=== PATIENT | female | born 1960 | race Caucasian/White ===

== ENCOUNTER 2017-08-15 18:19 | Outpatient (REF) | payer BC, SELFPAY ==
[2017-08-15 18:33] VITALS: BP 167/99; PULSE 117; RESP 16; TEMP 36.6; O2SAT 95
--- NOTE | 2017-08-15 18:57 | DI.REPORT_ITS ---
SYMPTOM/DIAGNOSIS: POSTERIOR MEDIAL PAIN LEFT KNEE: Three views. No priors. No acute fracture or dislocation is seen. There is a moderate joint effusion. There are enthesophytes seen at the superior and inferior patella. Mild degenerative changes are seen at the patellofemoral joint and the medial femoral tibial joint. The bones appear intact and normally mineralized. No radiopaque foreign bodies are seen in the soft tissues. There is mild soft tissue swelling anteriorly. IMPRESSION: 1. Mild degenerative changes of the left knee. 2. Moderate joint effusion.
--- NOTE | 2017-08-15 18:58 | ED.GENADUL ---
Disposition Clinical Impression: Knee strain Disposition: HOME Condition: Good Instructions: Swollen Knee Joint (ED) Additional Instructions: Nonweightbearing with crutches/walker until seen by orthopedics in follow-up. Ice, elevate above the level of the heart, use compression bandage to reduce pain and swelling. I have ordered an outpatient ultrasound of your leg for tomorrow. Please call [phone] to schedule an appointment. Please call the orthopedic office following the results of your ultrasound to schedule an appointment for follow-up. The office #[phone] Return to the develop with a fever, redness, increasing pain or any other concerns. May use Tylenol as you have been every 4-6 hours for pain with the oxycodone, as instructed, as needed for severe pain every 4-6 hours if needed. Your x-ray showed fluid in the joint and osteoarthritis but no evidence of bone fracture. Medical Decision Making - Radiology Data Radiology results: report reviewed, image reviewed - Medical Decision Making 56-year-old female with left knee pain for 2 weeks and abruptly worsened today with body movement. She is tender both posteriorly and medially. Exam does not reveal laxity of the joint. There is no erythema and she does not have a fever. Motor is intact as is sensation. Differential diagnosis includes medial meniscus bucket-handle tear, ligamentous strain, osseous injury, Tovar's cyst. Referred for x-ray which does not appear to reveal any bony injury. There does appear to be joint effusion. I will order an outpatient ultrasound for tomorrow to exclude DVT versus Tovar's cyst. More likely this is soft tissue injury. We will keep her nonweightbearing and ask that she follow-up with orthopedics for recheck for soft tissue knee injury. History of Present Illness - General Chief complaint: Orthopedic Stated complaint: L KNEE PAIN Time Seen by Provider: 08/15/17 18:22 Source: patient, family, RN notes reviewed Mode of arrival: wheelchair Limitations: no limitations - History of Present Illness Initial comments: Knee pain: 56-year-old female presents with acute exacerbation of knee pain she has had for 2 weeks. She states that she got up out of a recliner 2 weeks ago and when she is began to weight-bear felt immediate pain in the posterior aspect of her left knee. It is been dull, achy, mild to moderate. It is nonradiating. Symptoms worsened with weightbearing. She states that the begun to improve and today after rising out of a chair and walking while weightbearing she felt 3 quick crunching sounds in the immediate onset of worsening pain in the posterior and medial aspect of the left knee. It too has been nonradiating. It is worse with weightbearing and she has been unable to walk without difficulty. No fall, twisting injury, no numbness or tingling. Denies back pain. - Related Data Calcium Carb/Vit D3/Minerals [Calcium +D & Minerals Chew Tab] 1 tab PO DAILY 06/01/13 Hydrochlorothiazide [Hydrodiuril] 25 mg PO QAM #90 tab-cap 10/09/16 Pravastatin Sodium 20 mg PO DAILY #90 tab-cap 02/01/17 Acetaminophen [Tylenol] 650 mg PO PRN PRN 08/15/17 Allergies Allergy/AdvReac Type Severity Reaction Status Date / Time ibuprofen Allergy Intermediate Swelling Unverified 08/15/17 18:40 doxycycline AdvReac SORE Unverified 08/15/17 18:40 MOUTH/FUZZY TONGUE Review of Systems Other: 6 systems reviewed, otherwise negative Past Medical History - Past Medical History Hypertension hyperlipidemia General Exam - General Limitations: no limitations General appearance: alert, in no apparent distress - Head Head exam: Present: atraumatic, normocephalic - Eye Eye exam: Present: PERRL, EOMI - Respiratory Respiratory exam: Present: normal lung sounds bilaterally. Absent: respiratory distress - Cardiovascular Cardiovascular Exam: Present: regular rate, normal rhythm - GI/Abdominal GI/Abdominal exam: Present: soft. Absent: distended - Extremities Exam Extremities exam: Present: tenderness, normal capillary refill, other (Left knee with posterior and medial joint line tenderness. Do not appreciate palpable cords. There is no calf asymmetry. 2+ DP bilaterally. Sensation is intact throughout. Motor is limited by pain the patient is able to resist in both flexion and extension and motor would be graded at 5 out of 5 bilaterally.) - Back Exam Back exam: Absent: tenderness - Neurological Exam Neurological exam: Present: alert, oriented X3 - Psychiatric Psychiatric exam: Present: normal affect, normal mood - Skin Skin exam: Present: warm, dry, intact. Absent: rash Course Vital Signs - 24 hr 08/15/17 18:33 Temperature 36.6 C Pulse 117 H Respiratory 16 Rate Blood Pressure 167/99 Pulse Oximetry 95
[2017-08-15] MEDS: oxyCODONE 5 MG TAB PO (19:14)
--- NOTE | 2017-08-15 20:01 | DI.VRAD_ITS ---
EXAM: XR Left Knee, 3 views CLINICAL HISTORY: 56 years old, female; Pain; Knee; Left; Patient HX: Posterior/medial pain TECHNIQUE: Three views of the left knee. COMPARISON: No relevant prior studies available. FINDINGS: Bones/joints: Moderate size knee joint effusion. Mild degenerative arthrosis of the patellofemoral joint. Minimal degenerative arthrosis of the medial tibiofemoral joint. No acute fracture. No dislocation. Soft tissues: Swelling of the prepatellar and pretibial soft tissues. IMPRESSION: 1. Osteoarthritis. 2. Knee joint effusion. Dictated and Authenticated by: Pato Mendoza MD. Ordering:TOMMIE FRANCO MD
== END 2018-01-03 15:18 ==
LOC: LBN 01-03 14:58
PROVIDERS: Emergency Provider Emergency Medicine; PCP Family Medicine; Visit Provider Internal Medicine
DX: S83.92XA Sprain of unspecified site of left knee, initial encounter (principal); M25.452 Effusion, left hip; X50.0XXA Overexertion from strenuous movement or load, initial encounter; I10 Essential (primary) hypertension
CPT/HCPCS: 73562; 87077; 99283; 87086

== ENCOUNTER 2018-01-03 12:30 | Outpatient (REF) | payer BC, SELFPAY | END 2018-01-03 12:50 | LOC: LBN 12:30 | PROVIDERS: PCP Family Medicine; Visit Provider Internal Medicine | DX: N39.0 Urinary tract infection, site not specified (principal) | CPT/HCPCS: 87077; 87086; 87186 ==

== ENCOUNTER 2018-03-24 02:05 | Outpatient (CLI) | payer BC, SELFPAY ==
[2018-03-24 11:27] LABS: Hemoglobin A1C 6.4 % (4.5-6.2)
[2018-03-24 11:29] LABS: ALT 52 U/L (12-78); AST 43 U/L (15-37); Albumin 3.5 g/dL (3.4-5.0); Alkaline Phosphatase 107 U/L (46-116); Anion Gap 7.2 mmol/L (3-11); BUN 13 mg/dL (7-18); Bilirubin, Total 0.6 mg/dL (0.2-1.0); CO2 31.8 mmol/L (21.0-32.0); CREATININE 0.78 mg/dL (0.55-1.02); Calcium 8.9 mg/dL (8.5-10.1); Chloride 101 mmol/L (98-107); Cholesterol 157 mg/dL (50-200); Glucose 111 mg/dL (70-100); HDL Cholesterol 32 mg/dL (40-60); LDL CHOLESTEROL 111 mg/dL (<100); Potassium 3.9 mmol/L (3.5-5.1); Sodium 140 mmol/L (136-145); Total Protein 6.9 g/dL (6.4-8.2); Triglyceride 98 mg/dL (30-150)
== END 2018-03-24 02:25 ==
PROVIDERS: PCP Family Medicine; Visit Provider Family Medicine
DX: R73.9 Hyperglycemia, unspecified (principal); E78.5 Hyperlipidemia, unspecified
CPT/HCPCS: 36415; 80053; 80061; 83721; 83036

== ENCOUNTER 2018-07-13 03:37 | Outpatient (CLI) | payer BC, SELFPAY ==
--- NOTE | 2018-07-13 11:00 | DI.MAMMO_ITS ---
SYMPTOMS/DIAGNOSIS: SCREENING, Z12.31 MAMMOGRAMS: Mammograms were interpreted according to the usual protocol including computer analysis with CAD system, tomosynthesis and C view imaging. The breast tissue is primarily of fatty radiodensity. There is no mass. There are no suspicious calcifications and there has been no significant interval change when compared with prior images. SUMMARY: No evidence of malignancy, category 1. Yearly screening mammography is recommended. Breast density category A. MQSA ASSESSMENT OF FINDINGS: Negative. Category 1. Patient will receive a letter notifying them of these results. BI-RAD category A. The breasts are almost entirely fatty.
== END 2018-07-13 03:57 ==
PROVIDERS: PCP Family Medicine; Visit Provider Obstetrics & Gynecology Gynecology
DX: Z12.31 Encounter for screening mammogram for malignant neoplasm of breast (principal)
CPT/HCPCS: 77063; 77067

== ENCOUNTER 2018-09-14 01:40 | Outpatient (CLI) | payer BC, SELFPAY ==
[2018-09-14 11:17] LABS: ALT 39 U/L (12-78); AST 33 U/L (15-37); Albumin 3.4 g/dL (3.4-5.0); Alkaline Phosphatase 108 U/L (46-116); Anion Gap 9.4 mmol/L (3-11); BUN 12 mg/dL (7-18); Bilirubin, Total 0.7 mg/dL (0.2-1.0); CO2 29.6 mmol/L (21.0-32.0); CREATININE 0.74 mg/dL (0.55-1.02); Calcium 8.7 mg/dL (8.5-10.1); Chloride 102 mmol/L (98-107); Glucose 110 mg/dL (70-100); Potassium 3.5 mmol/L (3.5-5.1); Sodium 141 mmol/L (136-145); Total Protein 6.7 g/dL (6.4-8.2)
[2018-09-14 11:21] LABS: Hemoglobin A1C 6.5 % (4.5-6.2)
== END 2018-09-14 02:00 ==
PROVIDERS: PCP Family Medicine; Visit Provider Family Medicine
DX: R73.9 Hyperglycemia, unspecified (principal); I10 Essential (primary) hypertension
CPT/HCPCS: 36415; 80053; 83036

== ENCOUNTER 2018-11-25 10:32 | Outpatient (REF) | payer BC, SELFPAY | END 2018-11-25 10:52 | LOC: LBN 10:32 | PROVIDERS: PCP Family Medicine; Visit Provider Nurse Practitioner | DX: N39.0 Urinary tract infection, site not specified (principal) | CPT/HCPCS: 87077; 87086; 87186 ==

== ENCOUNTER 2019-01-30 10:39 | Outpatient (REF) | payer BC, SELFPAY ==
[2019-01-30 11:16] LABS: Bilirubin Negative (Negative); Blood Moderate (Negative); Clarity Cloudy (Clear); Glucose Negative (Negative); Ketones Negative (Negative); Leukocyte Esterase Moderate (Negative); Nitrite Positive (Negative); Urobilinogen 0.2 EU/dL (Up TO 0.2)
[2019-01-30 11:40] LABS: WBC >50 HPF (0-5)
[2019-01-30 11:42] LABS: C & S Indicated? C&S Done As Ordered
== END 2019-01-30 10:59 ==
LOC: LBN 10:39
PROVIDERS: PCP Family Medicine; Visit Provider Nurse Practitioner Family
DX: R30.0 Dysuria (principal); N30.90 Cystitis, unspecified without hematuria
CPT/HCPCS: 87077; 81003; 81015; 87086; 87186

== ENCOUNTER 2019-02-23 02:08 | Outpatient (CLI) | payer BC, SELFPAY ==
[2019-02-23 11:37] LABS: ALT 36 U/L (14-59); AST 26 U/L (15-37); Albumin 3.6 g/dL (3.4-5.0); Alkaline Phosphatase 93 U/L (46-116); BUN 16 mg/dL (7-18); Bilirubin, Total 0.5 mg/dL (0.2-1.0); CREATININE 0.75 mg/dL (0.55-1.02); Calcium 8.7 mg/dL (8.5-10.1); Calculated LDL 101 mg/dL; Chloride 104 mmol/L (98-107); Cholesterol 146 mg/dL (50-200); Glucose 103 mg/dL (70-100); HDL Cholesterol 32 mg/dL (40-60); Potassium 4.3 mmol/L (3.5-5.1); Sodium 143 mmol/L (136-145); Total Protein 6.9 g/dL (6.4-8.2); Triglyceride 69 mg/dL (30-150)
[2019-02-23 11:53] LABS: Hemoglobin A1C 6.3 % (4.5-6.2)
== END 2019-02-23 02:28 ==
PROVIDERS: PCP Family Medicine; Visit Provider Family Medicine
DX: E78.5 Hyperlipidemia, unspecified (principal); E11.9 Type 2 diabetes mellitus without complications
CPT/HCPCS: 36415; 80053; 80061; 83036

== ENCOUNTER 2019-05-16 12:14 | Outpatient (REF) | payer BC, SELFPAY | END 2019-05-16 12:34 | LOC: LBN 12:14 | PROVIDERS: PCP Family Medicine; Visit Provider Nurse Practitioner | DX: R30.0 Dysuria (principal) | CPT/HCPCS: 87077; 87086; 87186 ==

== ENCOUNTER 2019-06-09 12:22 | Outpatient (REF) | payer BC, SELFPAY ==
[2019-06-09 14:12] LABS: Bilirubin Negative (Negative); Blood Small (Negative); Clarity Cloudy (Clear); Glucose Negative (Negative); Ketones Negative (Negative); Leukocyte Esterase Large (Negative); Nitrite Positive (Negative); Specific Gravity 1.025 (1.005-1.025); Urobilinogen 0.2 EU/dL (Up TO 0.2)
[2019-06-09 14:29] LABS: Bacteria Many HPF (Negative); C & S Indicated? C&S Done As Ordered; Casts Negative LPF (Negative); Crystals Negative HPF (Negative); Epithelial Cells Moderate HPF (Negative); Mucus Negative (Negative); WBC >50 HPF (0-5)
== END 2019-06-09 12:42 ==
LOC: LBN 12:22
PROVIDERS: Nurse Practitioner Family; PCP Family Medicine; Visit Provider Family Medicine
DX: R30.0 Dysuria (principal)
CPT/HCPCS: 87077; 81003; 81015; 87086; 87186

== ENCOUNTER 2019-06-23 12:54 | Outpatient (REF) | payer BC, SELFPAY ==
[2019-06-23 14:42] LABS: Bilirubin Negative (Negative); Blood Moderate (Negative); Clarity Cloudy (Clear); Glucose Negative (Negative); Ketones Negative (Negative); Leukocyte Esterase Large (Negative); Nitrite Positive (Negative); Urobilinogen 0.2 EU/dL (Up TO 0.2)
[2019-06-23 14:52] LABS: Bacteria Many HPF (Negative); Epithelial Cells Few HPF (Negative); WBC >50 HPF (0-5)
[2019-06-23 14:53] LABS: C & S Indicated? C&S Done As Ordered
== END 2019-06-23 13:14 ==
LOC: LBN 12:54
PROVIDERS: PCP Family Medicine; Visit Provider Nurse Practitioner Family
DX: N39.0 Urinary tract infection, site not specified (principal)
CPT/HCPCS: 87077; 81003; 81015; 87086; 87186

== ENCOUNTER 2019-06-26 00:30 | Outpatient (CLI) | payer BC, SELFPAY ==
--- NOTE | 2019-06-26 15:30 | DI.US_ITS ---
EXAM: US RENAL CLINICAL HISTORY: recurrent UTI N39.0. TECHNIQUE: Tubbs scale, color and spectral Doppler were used. COMPARISON: No exams were available for comparison FINDINGS: Renal size in cm: Right: 12.2 left: 12 Echogenicity: Normal. Hydronephrosis: No. Cyst or mass: No. Nephrolithiasis: No. Other findings: Limited examination due to patient body habitus. Bladder:Normal. Ureteral jets: Right: Visualized and unremarkable. Left: Visualized and unremarkable. Prevoid vol:362 cc Postvoid vol:30 cc IMPRESSION: 1. Exam somewhat limited due to patient body habitus. 2. No gross abnormality. DATA REPOSITORY:
== END 2019-06-26 00:50 ==
PROVIDERS: PCP Family Medicine; Visit Provider Nurse Practitioner Family
DX: N39.0 Urinary tract infection, site not specified (principal)
CPT/HCPCS: 76770

== ENCOUNTER 2019-09-30 11:05 | Outpatient (REF) | payer BC, SELFPAY ==
[2019-09-30 12:02] LABS: Bilirubin Negative (Negative); Blood Trace-lysed (Negative); Clarity Sl Cloudy (Clear); Glucose Negative (Negative); Ketones Negative (Negative); Leukocyte Esterase Small (Negative); Nitrite Negative (Negative); Specific Gravity 1.025 (1.005-1.025); Urobilinogen 0.2 EU/dL (Up TO 0.2)
[2019-09-30 12:19] LABS: Bacteria Many HPF (Negative); WBC >50 HPF (0-5)
[2019-09-30 12:20] LABS: C & S Indicated? C&S Done As Ordered
== END 2019-09-30 11:25 ==
LOC: LBN 11:05
PROVIDERS: PCP Family Medicine; Visit Provider Nurse Practitioner Gerontology
DX: N39.0 Urinary tract infection, site not specified (principal)
CPT/HCPCS: 87077; 81003; 81015; 87086; 87186

== ENCOUNTER 2020-01-05 13:30 | Outpatient (REF) | payer BC, SELFPAY ==
[2020-01-12 07:51] LABS: Campylobacter PCR Negative (Negative); Salmonella PCR Negative (Negative); Shiga Toxin PCR Negative (Negative); Shigella/Enteroinvasive Ecoli Negative (Negative)
== END 2020-01-05 13:50 ==
LOC: LBN 13:30
PROVIDERS: PCP Family Medicine; Visit Provider Nurse Practitioner Family
DX: K92.1 Melena (principal)
CPT/HCPCS: 87329; 87505

== ENCOUNTER 2020-01-26 07:49 | Outpatient (CLI) | payer BC, SELFPAY ==
[2020-01-27 14:57] LABS: COVID-19 RT-PCR Result NEGATIVE (Negative)
== END 2020-01-26 08:09 ==
PROVIDERS: PCP Family Medicine; Visit Provider Surgery
DX: K59.00 Constipation, unspecified (principal); Z01.818 Encounter for other preprocedural examination; Z11.59 Encounter for screening for other viral diseases
CPT/HCPCS: U0003

== ENCOUNTER 2020-01-29 10:18 | Day surgery (SDC) | payer BC, SELFPAY ==
--- NOTE | 2020-01-29 06:50 | COLE_ITS ---
Date of service: 01/29/20 Time of Service: 11: Colonoscopy Report Date of procedure: 01/29/20 Pre-op diagnosis general: rectal pain, screening colonoscopy Post-op diagnosis procedure note: other (diverticulosis and polyps) Procedure: Colonoscopy with polypectomy Surgeon: Angelita Bolden Anesthesia proc note operative: other (General/ASA 2/Mike Feng CRNA) Estimated blood loss (mL): 2 Pathology: other (descending colon and sigmoid colon) Complications: None Disposition: same day Indications: From what the patient is describing to me today, it sounds like she had a rectal fissure with some bleeding. This has subsequently resolved. She is having no more pain or bleeding. It resolved after being on MiraLAX and stool softeners. However we should do a colonoscopy to rule out any other pathology. Patient's had no weight loss. She has had no changes in her bowel habits. She is due for colonoscopy anyway. And we will go ahead and schedule her for that today as well. Given her body habitus, she most likely has obstructive sleep apnea. She will need a Cobin test preOp Informed consent is obtained for the procedural (explained in simple layman's terms that the pt and/or family could understand) explaining risks vs benefits and alternatives to the procedure and consequences if we do not do the procedure and need/rational for the procedure. Risks include but are not limited to: bleeding, infection, perforation of esophagus, stomach, colon, small intestines, bronchus or trachea, or PTX. This would necessitate emergency surgery to repair the damage w/ possible ostomy; and other associated complications w/ the required surgery. Also complications of anesthesia including aspiration, IN/CVA/. Prep: Miralax/Dulcolax Procedure Start Time: 11:23 Procedure End Time: 11:49 Retraction Time: 13 minutes Findings: 2 small benign appearing polyps Moderate diverticulosis of the sigmoid colon Procedure Description: After informed consent was obtained the patient was taken to the procedure room and placed in a left decubitous position. Monitors were applied and a time out was done. The patients name, date of , procedure, allergies to medications and metal in their body was reviewed. The patient was then sedated. Once sedated and comfortable a rectal exam was done. External exam was normal. Internal exam revealed a normal sphincter tone and no palpable masses. The scope was then introduced and retro-flexed. No internal hemorrhoids were identified. The scope was then advanced to the cecum without difficulty. The ileocecal vlave and appendiceal orifice were identified. The prep was adequate. The scope was then slowly retracted over 13 minutes back into the rectum. Polyps were removed with cold forceps in the descending and sigmoid colon. There was moderate diverticulosis noted of the sigmoid colon. The scope was removed and the patient was woken up and taken back to Same day surgery in stable condition. The patient tolerated the procedure well and there were no immediate comp lications. Follow up: Follow up will depend on final pathology
--- NOTE | 2020-01-29 06:51 | W.PM.DSUDISC ---
Discharge Plan Disposition Patient Disposition: HOME Condition: Good Discharge Details Reason For Visit: HEYDI Attending Provider: Angelita Bolden Primary Care Provider: Fe Vallecillo Home Meds and New Rx's Prescriptions: Continued estradiol 0.01 % (0.1 mg/gram) cream 1 gm VG DIRECTED Qty: 60 RF: 3 polyethylene glycol 3350 [Miralax] 17 gram powder in packet 17 g PO DAILY PRN (Reason: constipation) Qty: 100 RF: 0 docusate sodium [Colace] 100 mg capsule 100 mg PO BID PRN (Reason: constipation) Qty: 60 RF: 1 hydrochlorothiazide 25 mg tablet 25 mg PO QAM Qty: 90 RF: 4 pravastatin 20 mg tablet 20 mg PO DAILY Qty: 90 RF: 4 metformin 500 mg tablet 500 mg PO DAILY Qty: 90 RF: 4 calcium carbonate-vit D3-min 1 EACH tablet,chewable 1 tab PO DAILY RF: 0 Discontinued polyethylene glycol 3350 17 gram/dose powder 238 g PO ONCE Qty: 238 RF: 0 bisacodyl [Dulcolax (bisacodyl)] 5 mg tablet,delayed release (DR/EC) 5 mg PO ONCE Qty: 4 RF: 0 Discharge Instructions Instructions: Diverticulosis (GEN), Colorectal Polyps (DC) Additional Instructions: Findings: 2 small polyps Diverticulosis Follow up: 5 years Please call if you develop: fevers >101.5 Nausea or Vomiting Abdominal pain that is not transient DAY SURGERY UNIT POST ENDOSCOPY INSTRUCTIONS 1. Because there will be medication in your system for the next 24 hours, you may feel a little sleepy. Your coordination will be affected. Therefore: a. Do not drive or operate dangerous equipment for 24 hours. b. Do not drink alcohol beverages for 24 hours (not even beer). c. Plan to go home and rest for the day. 2. Generally there are no restrictions on your activity after a day or so has gone by, but you may feel a bit fatigued for a few days. 3 After you arrive home you may have a light meal and return to a normal diet as you can tolerate it without feeling sick to your stomach. 4. After surgery, you may feel pain or discomfort. This should be only transient, but if it persists please contact your doctor. 5. If there are any questions regarding the findings of your procedure, please feel free to contact your doctor. 6. If you are unable to contact your doctor with a problem, contact the hospital at [phone]. 7. Continue all your regular medications unless directed otherwise. I understand the above instructions and have no questions. Signature of Patient or Responsible Adult Escort Date/Time Name of Responsible Adult Escort Signature of Nurse Date/Time Activity:: Activity as Tolerated Diet:: high fiber diet Discharge Orders Discharge Orders: Discharge Order (Routine); Ordered 01/29/20 Ordered By: Angelita Bolden
[2020-01-29 10:20] VITALS: BP 151/111; PULSE 100; RESP 18; TEMP 36.6; O2SAT 99
[2020-01-29] MEDS: Lactated Ringers 1,000 ML 80 ML IV (11:07)
--- NOTE | 2020-01-29 11:28 | BOWEL_PTH ---
PATIENT: Sydnie Hawley LOC: [facility] U#:[id number] AGE/SX: 59/F ROOM: RE01/29/[address]: Angelita Bolden MD : 1960 BED: DIS: 01/29/2020 SPEC #: [id number] RECD: 01/29/20 12:49 STATUS: ANUP REQ #: [id number] KEVIN: 01/29/20 11:[address]: Angelita Bolden DEPT: Surgical Specimen RECD BY: Betzy Gaston ENTERED: 01/29/20 12:50 SP TYPE: Bowel OTHR DR: Fe Vallecillo MD Tissues: 1 - BIOPSY BOWEL 2 - BIOPSY BOWEL Procedures: GROSS AND MICRO LEVEL 4 Comments: [id number]
[2020-01-29 12:15] VITALS: BP 144/88; PULSE 84; RESP 16; TEMP 36; O2SAT 95
== END 2020-01-29 12:50 | disposition home or self-care (01) ==
LOC: SUR 10:18
PROVIDERS: PCP Family Medicine; Visit Provider Surgery
PROC: 0DJD8ZZ Inspection of Lower Intestinal Tract, Via Natural or Artificial Opening Endoscopic (ICD-10-PCS; CPT 45378; principal; 2020-01-29 10:45)
DX: Z12.11 Encounter for screening for malignant neoplasm of colon (principal); K63.5 Polyp of colon; K57.30 Diverticulosis of large intestine without perforation or abscess without bleeding
CPT/HCPCS: 45380; 88305; J2001

== ENCOUNTER 2020-02-28 04:54 | Outpatient (CLI) | payer BC, SELFPAY ==
[2020-02-28 13:20] LABS: Calculated LDL 111 mg/dL (<100); Cholesterol 161 mg/dL (<200); HDL Cholesterol 31 mg/dL (40-60); Triglyceride 96 mg/dL (<150)
[2020-02-28 13:35] LABS: Hemoglobin A1C 6.2 % (<5.7)
== END 2020-02-28 05:14 ==
PROVIDERS: PCP Family Medicine; Visit Provider Family Medicine
DX: E78.5 Hyperlipidemia, unspecified (principal); E11.9 Type 2 diabetes mellitus without complications
CPT/HCPCS: 36415; 80061; 82043; 82570; 83036

== ENCOUNTER 2020-03-01 14:10 | Outpatient (REF) | payer BC, SELFPAY ==
[2020-03-01 17:21] LABS: COMMENT (LAB VIEW ONLY) 66.01 mg/dL; Microalb ug/mg Crea 16.5 ug/mg Cr
== END 2020-03-01 14:30 ==
LOC: NCHCN 14:10
PROVIDERS: PCP Family Medicine; Visit Provider Family Medicine
DX: E11.9 Type 2 diabetes mellitus without complications (principal)
CPT/HCPCS: 82043; 82570

== ENCOUNTER 2020-03-27 19:22 | Outpatient (REF) | payer BC, SELFPAY | END 2020-03-27 19:42 | LOC: LBN 19:22 | PROVIDERS: PCP Family Medicine; Visit Provider Nurse Practitioner Gerontology | DX: N39.0 Urinary tract infection, site not specified (principal) | CPT/HCPCS: 87077; 87086; 87186 ==

== ENCOUNTER 2020-08-20 02:14 | Outpatient (CLI) | payer BC, SELFPAY ==
--- NOTE | 2020-08-20 12:00 | DI.MAMMO_ITS ---
Exam(s) MAMMO SCREENING EXAM: MAMMO SCREENING CLINICAL HISTORY: screening,z12.39 TECHNIQUE: Mammograms were interpreted according to the usual protocol including computer analysis w Qulsar CAD system, tomosynthesis and C-view imaging. COMPARISON: FINDINGS: The breasts are of moderate density with fairly symmetrical distribution of fibroglandular tissue. N o dominant mass is identified in either breast. There are some benign-appearing acinar microcalcific ations of the right breast probably unchanged from prior examinations including July 2018. No new s uspicious clumped microcalcification seen. No other significant changes. IMPRESSION: No specific evidence of malignancy at this time. Routine screening examinations are suggested at yea rly intervals in this age group according to the ACS ACR guidelines. BI-RADS Category 1 - Negative Breast Density - Category B - Scattered areas of fibroglandular density
== END 2020-08-20 02:34 ==
PROVIDERS: PCP Family Medicine; Visit Provider Family Medicine
DX: Z12.31 Encounter for screening mammogram for malignant neoplasm of breast (principal)
CPT/HCPCS: 77063; 77067

== ENCOUNTER 2020-12-06 00:54 | Outpatient (CLI) | payer BC, SELFPAY ==
[2020-12-06 11:19] LABS: Anion Gap 10.1 mmol/L (3-11); BUN 11 mg/dL (7-18); CO2 27.9 mmol/L (21.0-32.0); CREATININE 0.7 mg/dL (0.55-1.02); Calcium 8.6 mg/dL (8.5-10.1); Calculated LDL 110 mg/dL (<100); Chloride 103 mmol/L (98-107); Cholesterol 165 mg/dL (<200); Glucose 113 mg/dL (74-106); HDL Cholesterol 29 mg/dL (40-60); Potassium 3.7 mmol/L (3.5-5.1); Sodium 141 mmol/L (136-145); Triglyceride 132 mg/dL (<150)
[2020-12-06 16:16] LABS: Hemoglobin A1C 6.6 % (<5.7)
[2020-12-09 13:45] LABS: COMMENT (LAB VIEW ONLY) 30.45 mg/dL
[2020-12-09 13:47] LABS: Microalb ug/mg Crea 392.4 ug/mg Cr
== END 2020-12-06 00:55 | disposition home or self-care (01) ==
LOC: LOS 00:54
PROVIDERS: PCP Family Medicine; Visit Provider Family Medicine
DX: E11.9 Type 2 diabetes mellitus without complications (principal)
CPT/HCPCS: 36415; 80048; 80061; 83036

== ENCOUNTER 2020-12-10 16:31 | Outpatient (REF) | payer BC, SELFPAY | END 2020-12-10 16:32 | disposition home or self-care (01) | LOC: LBN 16:31 | PROVIDERS: PCP Family Medicine; Visit Provider Urology | DX: N39.0 Urinary tract infection, site not specified (principal) | CPT/HCPCS: 87077; 82043; 82570; 87086; 87186 ==

== ENCOUNTER 2020-12-10 19:20 | Emergency (ER) | payer BC, SELFPAY ==
[2020-12-10] VITALS (70 sets, daily range): BP systolic 137–166; BP diastolic 61–138; PULSE 75–112; RESP 14–36; TEMP 36.3; O2SAT 94–98
[2020-12-10] MEDS: methylPREDNISolone SUCC 125 MG VIAL IVP (20:04)
[2020-12-10] MEDS: FAMOTIDINE 20 MG/50 ML BAG 200 MG IVPB (20:04)
[2020-12-10] MEDS: Normal Saline 500 ML IV (20:04)
--- NOTE | 2020-12-10 20:13 | ED.GENADUL_ITS ---
Discharge Plan Disposition Patient Disposition: HOME Condition: Stable Discharge Details Clinical Impression: Allergic reaction, UTI (urinary tract infection) Primary Care Provider: Fe Vallecillo ED Provider: Betzy Robb Home Meds and New Rx's Prescriptions: New epinephrine 0.3 mg/0.3 mL auto-injector 0.3 mg IM ONCE Qty: 1 RF: 0 prednisone 20 mg tablet 20 mg PO BID Qty: 6 RF: 0 fluconazole [Diflucan] 150 mg tablet 150 mg PO Q3D Qty: 3 RF: 0 cephalexin 500 mg capsule 500 mg PO Q12H 7 Days Qty: 14 RF: 0 Continued estradiol 0.01 % (0.1 mg/gram) cream 1 applic VG DIRECTED Qty: 60 RF: 3 metformin 500 mg tablet 500 mg PO DAILY Qty: 90 RF: 4 hydrochlorothiazide 25 mg tablet 25 mg PO QAM Qty: 90 RF: 4 pravastatin 20 mg tablet 20 mg PO DAILY Qty: 90 RF: 4 calcium carbonate-vit D3-min 1 EACH tablet,chewable 1 tab PO DAILY RF: 0 Discontinued sulfamethoxazole-trimethoprim [Bactrim DS] 800-160 mg tablet 1 tab PO Q12H Qty: 14 RF: 0 Discharge Instructions Instructions: Urinary Tract Infection in Women (ED), General Allergic Reaction (ED) Additional Instructions: Take antibiotic as prescribed, I have initiated Keflex after reviewing your prior history and sensitivities, this medication should be effective, you will take it twice a day I have given you a prescription for Diflucan, this is a medication for yeast infection, only take this if he develops yeast infection signs or symptoms Take your prednisone, you will not need another dose until tomorrow Take Zyrtec or Claritin daily for the next 2 to 3 days for allergic reaction Do not continue your Bactrim and let your doctor know that you are allergic to this medication Please return immediately should you have new or worsening complaints I supplied you with an EpiPen, should you have difficulty swallowing, shortness of breath, significant swelling to your lip, take your bed medication immediately for allergic reaction signs or symptoms Discharge Data Discharge Date/Time-TO BE ENTERED AT DEPARTURE: 12/10/20 21:35 Medical Decision Making Patient appears well, she is feeling marked improvement, she was observed for 2 hours and is completely asymptomatic She is maintaining secretions, her vitals have normalized She denies any chest pain, shortness of breath, or difficulty swallowing She is changed to Keflex after reviewing her prior urine culture and sensitivities and given a single dose of Diflucan She is also placed on prednisone for the next several days and will take Zantac Given the threshold to return should she have new or worsening complaints Discharged home in stable condition Pulse 89 at time of reassessment EpiPen supplied with precautions for use discussed Medical Records Medical records reviewed: Yes I reviewed the patient's medical records. Lab Data Lab results reviewed: Yes I reviewed the patient's lab results. HPI General Mode of arrival: ambulatory . Date/Time Provider Initiated Documentation: 12/10/20 19:28 . Limitations to Documentation: no limitations . Information obtained by: patient . HPI Narrative: This 60-year-old female with history of diabetes, herpes, hyperlipidemia, essential hypertension presents wit h report of second sensation when swallowing, diffuse urticarial rash status is taking Bactrim. She states she is prescribed Bactrim for urinary tract infection and took her first dose this evening. Approximately an hour later her symptoms began. She denies significant difficulty swallowing. She denies any chest pain, shortness of breath, dizziness, nausea, vomiting. She was given a dose of Benadryl, 50 mg at urgent care prior to arrival. She does not have an EpiPen nor has she needed one in the past and never been told that she has anaphylaxis to any medication or antidepressants. She states that her symptoms have maintained but not worsened since the Benadryl. She denies any additional complaints at this time. She denies any abdominal pain. She denies having frequency which is consistent with a urinary tract infection. Related Data Home Medications Medication Instructions Recorded Confirmed calcium carbonate-vit D3-min 1 tab PO DAILY 06/01/13 12/10/20 hydrochlorothiazide 25 mg tablet 25 mg PO QAM #90 tab-cap 03/05/20 12/10/20 estradiol 1 applic VG DIRECTED #60 g 03/27/20 12/10/20 pravastatin 20 mg tablet 20 mg PO DAILY #90 tab-cap 07/08/20 12/10/20 metformin 500 mg tablet 500 mg PO DAILY #90 tab 08/07/20 12/10/20 cephalexin 500 mg PO Q12H 7 Days #14 cap 12/10/20 epinephrine 0.3 mg IM ONCE #1 ea 08/31/21 fluconazole [Diflucan] 150 mg PO Q3D #3 tab 12/10/20 prednisone 20 mg PO BID #6 tab 12/10/20 Previous Rx's Medication Instructions Recorded hydrochlorothiazide 25 mg tablet 25 mg PO QAM #90 tab-cap 03/05/20 estradiol 1 applic VG DIRECTED #60 g 03/27/20 pravastatin 20 mg tablet 20 mg PO DAILY #90 tab-cap 07/08/20 metformin 500 mg tablet 500 mg PO DAILY #90 tab 08/07/20 cephalexin 500 mg PO Q12H 7 Days #14 cap 12/10/20 epinephrine 0.3 mg IM ONCE #1 ea 12/10/20 fluconazole [Diflucan] 150 mg PO Q3D #3 tab 12/10/20 prednisone 20 mg PO BID #6 tab 12/10/20 Allergies Allergy/AdvReac Type Severity Reaction Status Date / Time Sulfa (Sulfonamide Allergy Severe hives Verified 12/10/20 18:54 Antibiotics) ibuprofen Allergy Intermediate Swelling Verified 12/10/20 18:50 doxycycline AdvReac SORE Verified 12/10/20 18:50 MOUTH/FUZZY TONGUE General Stated Complaint: Allergic PAZ: 3 Review of Systems All systems reviewed & are unremarkable except as noted in HPI and below PFSH Medical History Acanthosis nigricans both axilla BMI 45.0-49.9, adult (06/29/17) Diverticulosis of colon without diverticulitis sigmoid diverticulosis; colonoscopy 2009 Dysphagia (01/04/14) Endometrial cancer (12/26/14) FIGO stage 1A grade 1. s/p [facility] 11/29/14. Yearly inspection of vaginal cuff and bimanual exam recommended. Essential hypertension (01/25/13) Herpes zoster without complication Hyperlipidemia Internal derangement of left knee (09/29/17) Rectal fissure Vaginal enterocele Surgical History section X2 History of colonoscopy Tonsillectomy and adenoidectomy (02/01/14) Vaginal hysterectomy (11/29/14) [facility] with ovarian conservation. Jennifer 1 Stage 1 endometrial CA. No additional treatment required. Family History Mother , 89 Essential hypertension Hyperlipidemia Father , 83 Essential hypertension Sister Heart disease Hyperlipidemia Hypertension Stroke Sister Essential hypertension Hyperlipidemia Brother Essential hypertension Hyperlipidemia Son No problems noted. Son No problems noted. Maternal Grandfather , 68 No problems noted. Paternal Grandfather , 78 No problems noted. Maternal Grandmother , 76 No problems noted. Paternal Grandmother , 82 No problems noted. Other Personal history of malignant neoplasm Social History Smoking/Tobacco Use Status: Never Second Hand Exposure: Yes (when child) Smoking risk assessment performed?: Yes Alcohol Intake: never Drug use: Never Substance use type: does not use Caregiver/Support person: No Household members: spouse and children Housing: house Pets and animals: Yes Pets and animals: dog(s) Do you think of yourself as: straight/heterosexual Current gender identity: female What is your relationship status?: How often do you talk on the phone with friends or family?: three or more times per week How often do you get together with friends or relatives?: once per week How often do you attend samaritan or protestant services?: 1-3 times per year Do you belong to any clubs or organized social groups?: no Panel score (0-1 are the most socially isolated patients): 2 What type of physical activity do you participate in: decline to answer Anca/Episcopalian: Pentecostal Special anca needs: No Do you feel safe at home: Yes Do you feel safe in your relationship?: Yes Exam Const General: cooperative, comfortable and no acute distress HENMT Other: Uvula midline, no tongue swelling, no perioral swelling, maintaining secretions Eyes Conjunctivae: conjunctivae normal Sclera: sclerae normal Neck Other: No stridor Resp Effort & Inspection: normal respiratory effort Auscultation: clear to auscultation bilaterally Cardio Rate: tachycardic Rhythm: regular rhythm GI Other: Diffuse urticarial rash, nontender Skin Other: Urticarial rash generalized Neuro General: patient alert and patient oriented x3 Course Vital Signs Vital signs: Vital Signs Temperature 36.3 C L 12/10/20 19:24 Pulse 110 H 12/10/20 19:24 Respiratory Rate 16 12/10/20 19:24 Blood Pressure 166/84 H 12/10/20 19:24 Pulse Oximetry 96 12/10/20 19:24 Temperature 36.3 C L 12/10/20 19:24 Temperature Source Tympanic 12/10/20 19:24 Pulse 110 H 12/10/20 19:24 Respiratory Rate 16 12/10/20 19:24 Respiratory Effort Non-Labored 12/10/20 19:30 Blood Pressure 166/84 H 12/10/20 19:24 Pulse Oximetry 96 12/10/20 19:24 Oxygen Delivery Method Room Air 12/10/20 19:24 Oxygen Flow Rate 0 12/10/20 19:24 Pain Level 0 12/10/20 19:24
[2020-12-10] MEDS: Cephalexin 500 MG CAP PO (21:35)
== END 2020-12-10 21:35 | disposition home or self-care (01) ==
PROVIDERS: Emergency Provider Physician Assistant; PCP Family Medicine
DX: L50.9 Urticaria, unspecified (principal); T36.8X5A Adverse effect of other systemic antibiotics, initial encounter; N39.0 Urinary tract infection, site not specified
CPT/HCPCS: 96361; 96365; 96375; 99284; J2930

== ENCOUNTER 2021-04-03 14:50 | Outpatient (REF) | payer BC, SELFPAY | END 2021-04-03 14:51 | disposition home or self-care (01) | LOC: LBN 14:50 | PROVIDERS: PCP Family Medicine; Visit Provider Nurse Practitioner Gerontology | DX: N39.0 Urinary tract infection, site not specified (principal) | CPT/HCPCS: 87077; 87086; 87186 ==

== ENCOUNTER 2021-04-18 03:44 | Outpatient (CLI) | payer BC, SELFPAY ==
[2021-04-18 10:24] LABS: Calculated LDL 122 mg/dL (<100); Cholesterol 179 mg/dL (<200); HDL Cholesterol 31 mg/dL (40-60); Triglyceride 133 mg/dL (<150)
[2021-04-18 13:22] LABS: COMMENT (LAB VIEW ONLY) 73.15 mg/dL; Microalb ug/mg Crea 28.2 ug/mg Cr
== END 2021-04-18 03:45 | disposition home or self-care (01) ==
LOC: LBO 03:44
PROVIDERS: PCP Family Medicine; Visit Provider Family Medicine
DX: E78.5 Hyperlipidemia, unspecified (principal); E11.9 Type 2 diabetes mellitus without complications
CPT/HCPCS: 36415; 80061; 82043; 82570

== ENCOUNTER 2021-04-18 14:44 | Outpatient (REF) | payer BC, SELFPAY | END 2021-04-18 14:45 | disposition home or self-care (01) | LOC: LBN 14:44 | PROVIDERS: PCP Family Medicine; Visit Provider Family Medicine ==

== ENCOUNTER → 2021-09-18 01:43 | Outpatient (CLI) | payer BC, SELFPAY ==
--- NOTE | 2021-09-18 12:27 | DI.MAMMO_ITS ---
Exam(s) MAMMO SCREENING EXAM: MAMMO SCREENING CLINICAL HISTORY: screening,Z12.39. TECHNIQUE: Bilateral full field digital CC and MLO mammographic images were obtained with 3D tomosyn thesis and utilizing computer aided detection (CAD). COMPARISON: Prior mammograms were reviewed, the most recent being August 2020.. FINDINGS: There been no significant change in the appearance and distribution of the fibroglandular tissue. Benign-appearing microcalcifications are again noted in both breasts. There are no new spiculated masses nor malignant appearing microcalcification groups. There is no significant architectural distortion nor skin thickening-retraction. IMPRESSION: No radiographic evidence of malignancy. Stable benign findings. BI-RADS Category 2 - Benign Findings Breast Density - Category B - Scattered areas of fibroglandular density Breast density Category C or D implies that the patient has dense breast tissue. Dense breast tissue can make it harder to find cancer on a mammogram. Dense breast tissue is also associated with an incr eased risk of breast cancer. This information about the result of the mammogram report was provided to the patient to raise their awareness. Use this report when you speak with the patient about their risks for breast cancer, which includes their family history. At that time, you may recommend additional screening tests (Ultrasoun d or MRI) as these tests may add significant information. A negative radiographic report should not delay biopsy if a dominant or clinically suspicious mass is present. Up to ten percent of cancers are not identified on mammography. A negative report may reinforce clinical impression. Adenosis and dense breasts may obscure an underlying neoplasm. False positive reports average 6 to 10%. Patient will receive a letter notifying them of these results.
== END ==
PROVIDERS: PCP Nurse Practitioner Family; Visit Provider Family Medicine
DX: Z12.31 Encounter for screening mammogram for malignant neoplasm of breast (principal)
CPT/HCPCS: 77063; 77067

== ENCOUNTER 2021-10-07 16:51 | Outpatient (REF) | payer BC, SELFPAY | END 2021-10-07 16:52 | disposition home or self-care (01) | LOC: LBN 16:51 | PROVIDERS: PCP Nurse Practitioner Family; Visit Provider Nurse Practitioner Gerontology | DX: R82.998 Other abnormal findings in urine (principal) | CPT/HCPCS: 87077; 87086; 87186 ==

== ENCOUNTER 2021-11-04 11:09 | Outpatient (REF) | payer BC, SELFPAY ==
[2021-11-04 12:17] LABS: Bilirubin Negative (Negative); Blood Small (Negative); Clarity Sl Cloudy (Clear); Glucose Negative (Negative); Ketones Negative (Negative); Leukocyte Esterase Small (Negative); Nitrite Negative (Negative); Specific Gravity 1.025 (1.005-1.025); Urobilinogen 0.2 EU/dL (Up TO 0.2)
[2021-11-04 12:26] LABS: Bacteria Few HPF (Negative); C & S Indicated? Yes; Casts Negative LPF (Negative); Crystals Negative HPF (Negative); Epithelial Cells Few HPF (Negative); Mucus Negative (Negative)
== END 2021-11-04 11:10 | disposition home or self-care (01) ==
LOC: LBO 11:09
PROVIDERS: PCP Nurse Practitioner Family; Visit Provider Nurse Practitioner Gerontology
DX: N39.0 Urinary tract infection, site not specified (principal)
CPT/HCPCS: 87077; 81003; 81015; 87086; 87186

== ENCOUNTER 2022-03-11 10:05 | Outpatient (CLI) | payer BC, SELFPAY ==
[2022-03-11 12:23] LABS: CREATININE 0.7 mg/dL (0.55-1.02); Estimated GFR 97.12 (mL/min/1.73m2); Potassium 3.8 mmol/L (3.5-5.1)
== END 2022-03-11 10:06 | disposition home or self-care (01) ==
LOC: LOS 10:05
PROVIDERS: PCP Nurse Practitioner Family; Referring Provider Nurse Practitioner Family; Visit Provider Nurse Practitioner Family
DX: I10 Essential (primary) hypertension (principal)
CPT/HCPCS: 36415; 82565; 84132

== ENCOUNTER 2022-09-17 03:06 | Outpatient (CLI) | payer BC, SELFPAY ==
[2022-09-17 12:32] LABS: HCT 42.7 % (36.0-46.0); HGB 14.2 g/dL (11.2-15.7); MCH 30.9 pg (27.0-33.0); MCHC 33.3 % (32.0-36.0); MCV 93 fL (80-95); MPV 10.7 fL (8.0-11.0); Platelet Count 201 10^3/uL (130-400); RBC 4.59 10^6/uL (3.93-5.22); RDW 12.4 % (11.7-14.6); WBC 8.96 10^3/uL (4.4-10.8)
[2022-09-17 12:41] LABS: Anion Gap 5.7 mmol/L (3-11); BUN 12 mg/dL (7-18); CO2 29.3 mmol/L (21.0-32.0); CREATININE 0.7 mg/dL (0.55-1.02); Calcium 8.4 mg/dL (8.5-10.1); Calculated LDL 100 mg/dL (<100); Chloride 101 mmol/L (98-107); Cholesterol 162 mg/dL (<200); Estimated GFR 96.52 (mL/min/1.73m2); Glucose 111 mg/dL (74-106); HDL Cholesterol 34 mg/dL (40-60); Potassium 3.5 mmol/L (3.5-5.1); Sodium 136 mmol/L (136-145); TSH (W/Ref FT4) 0.03 uIU/mL (0.36-3.74); Triglyceride 141 mg/dL (<150)
[2022-09-17 12:58] LABS: FREE T4 1.09 ng/dL (0.76-1.46)
== END 2022-09-17 03:07 | disposition home or self-care (01) ==
LOC: LOS 03:06
PROVIDERS: PCP Nurse Practitioner Family; Visit Provider Nurse Practitioner Family
DX: E11.9 Type 2 diabetes mellitus without complications (principal); I10 Essential (primary) hypertension; E78.5 Hyperlipidemia, unspecified; K62.5 Hemorrhage of anus and rectum
CPT/HCPCS: 36415; 80048; 80061; 85027; 84439; 84443

== ENCOUNTER 2022-09-28 02:45 | Outpatient (CLI) | payer BC, SELFPAY ==
--- NOTE | 2022-09-28 07:15 | DI.MAMMO_ITS ---
Exam(s) MAMMO SCREENING EXAM: MAMMO SCREENING CLINICAL HISTORY: screening, Z12.39 TECHNIQUE: Mammograms were interpreted according to the usual protocol including computer analysis w [employer] CAD system, tomosynthesis and C-view imaging. COMPARISON: 2013 through 2021 FINDINGS: The breasts are composed of scattered fibroglandular densities, Breast Density category B. No suspicious masses or suspicious microcalcifications are seen. No skin thickening or abnormal axillary lymph nodes are seen. There has been no significant change from prior exams. IMPRESSION: BI-RADS Category 1, Negative mammogram Yearly screening mammography is recommended. Breast Density - Category B, scattered fibroglandular densities. A negative radiographic report should not delay biopsy if a dominant or clinically suspicious mass is present. Up to ten percent of cancers are not identified on mammography. A negative report may reinforce clinical impression. Adenosis and dense breasts may obscure an underlying neoplasm. False positive reports average 6 to 10%. Patient will receive a letter notifying them of these results.
== END 2022-09-28 03:05 ==
LOC: DI 02:45
PROVIDERS: PCP Nurse Practitioner Family; Visit Provider Nurse Practitioner Family
DX: Z12.31 Encounter for screening mammogram for malignant neoplasm of breast (principal)
CPT/HCPCS: 77063; 77067

== ENCOUNTER 2022-11-02 04:54 | Outpatient (CLI) | payer BC, SELFPAY ==
[2022-11-02 12:35] LABS: FREE T4 0.96 ng/dL (0.76-1.46); TSH 0.08 uIU/mL (0.36-3.74)
[2022-11-02 17:50] LABS: T3,Free 4.7 pg/mL (2.8-5.3)
[2022-11-02 18:03] LABS: T3, Total 225 ng/dL (97-169)
[2022-11-03 18:45] LABS: Thyrotropin Receptor Ab <1.10 IU/L
== END 2022-11-02 04:55 | disposition home or self-care (01) ==
LOC: LOS 04:54
PROVIDERS: PCP Nurse Practitioner Family; Visit Provider Nurse Practitioner Family
DX: E05.90 Thyrotoxicosis, unspecified without thyrotoxic crisis or storm (principal)
CPT/HCPCS: 36415; 84235; 84439; 84443; 84480; 84481

== ENCOUNTER 2022-11-09 12:24 | Outpatient (CLI) | payer BC, SELFPAY ==
[2022-11-10 09:34] LABS: Thyroglobulin Antibody <15 U/mL (<=60); Thyroperoxidase Antibody <28 U/mL (<=60)
== END 2022-11-09 12:25 | disposition home or self-care (01) ==
LOC: LBO 12:25
PROVIDERS: PCP Nurse Practitioner Family; Visit Provider Otolaryngology
DX: E04.2 Nontoxic multinodular goiter (principal); E05.90 Thyrotoxicosis, unspecified without thyrotoxic crisis or storm
CPT/HCPCS: 36415; 86376

== ENCOUNTER → 2022-12-10 01:00 | Outpatient (CLI) | payer BC, SELFPAY ==
--- NOTE | 2022-12-10 08:00 | DI.NM_ITS ---
Exam(s) NM I123 THYROID UP SC DAY 2 CLINICAL HISTORY: MULTINODULAR THYROID, SUBCLINICAL HYPERTHYROIDISM. COMPARISON: US US THYROID from 10/20/2022 TECHNIQUE: Capsule Dose: 200 uCi I-123 Images: At 6 hours and 24 hours. FINDINGS: The radioiodine uptake was 8.6 percent at 4 hours and 20.1% at 24 hours. This is within normal limit s. There is a hot nodule seen in the medial aspect of the right lobe of the thyroid gland. IMPRESSION: 1. The radioactive iodine uptake was within normal limits at 4 and 24 hours. 2. There is a hot nodule in the medial aspect of the right lobe of the thyroid gland. SNM Guidelines: Normal uptake values 10-35%. Graves Uptake >50-80%. DATA REPOSITORY:
== END ==
PROVIDERS: PCP Nurse Practitioner Family; Visit Provider Otolaryngology
DX: E04.2 Nontoxic multinodular goiter
CPT/HCPCS: 78014; A9512

== ENCOUNTER 2023-02-12 11:43 | Outpatient (REF) | payer BC, SELFPAY ==
[2023-02-12 13:10] LABS: Bilirubin Negative (Negative); Blood Trace-intact (Negative); Clarity Sl Cloudy (Clear); Glucose Negative (Negative); Ketones Negative (Negative); Leukocyte Esterase Negative (Negative); Nitrite Negative (Negative); Specific Gravity 1.015 (1.005-1.025); Urobilinogen 0.2 mg/dL (Up to 0.2)
[2023-02-12 13:18] LABS: RBC 0-2 HPF (0-2); WBC 0-2 HPF (0-5)
[2023-02-12 13:19] LABS: Bacteria Moderate HPF (Negative); C & S Indicated? C&S Done As Ordered; Casts Negative LPF (Negative); Crystals Negative HPF (Negative); Epithelial Cells Few HPF (Negative); Mucus Negative (Negative); Other Cells Rare Renal (Negative)
== END 2023-02-12 11:44 | disposition home or self-care (01) ==
LOC: LBN 11:43
PROVIDERS: PCP Nurse Practitioner Family; Visit Provider Nurse Practitioner Gerontology
DX: R82.90 Unspecified abnormal findings in urine (principal)
CPT/HCPCS: 87077; 81003; 81015; 87086; 87186

== ENCOUNTER → 2023-04-01 02:24 | Outpatient (CLI) | payer BC, SELFPAY ==
[2023-04-01 11:13] LABS: CREATININE 0.8 mg/dL (0.55-1.02); Estimated GFR 82.23 (mL/min/1.73m2); FREE T4 0.88 ng/dL (0.76-1.46); TSH 0.48 uIU/mL (0.36-3.74)
[2023-04-01] MEDS: Omnipaque 350 MG/ML 500 ML BTL-Imaging package 100 ML IJ (12:43)
[2023-04-01] MEDS: Normal Saline - Diluent 50 ML VIAL IJ (12:52)
--- NOTE | 2023-04-01 12:53 | DI.CT_ITS ---
Exam(s) CT NECK W EXAM: CT NECK W CLINICAL HISTORY: Multinodular goiter, E04.2. TECHNIQUE: Imaging Protocol: Axial computed tomography images with coronal and sagittal reformatted images were created and reviewed. CONTRAST MATERIAL: Intravenous: Contrast Contrast volume:100mL COMPARISON: US US THYROID from 10/20/2022 FINDINGS: Orbits and orbital soft tissues: Within normal limits. Visualized paranasal sinuses: There is a large mucous retention cyst or polyp in the left maxillary sinus. The remaining visualized paranasal sinuses and mastoid air cells are clear. Nasopharynx: Within normal limits. Oropharynx: Within normal limits. There is artifact from the patient's dental work. Hypopharynx: Within normal limits. Larynx: Within normal limits. Retropharyngeal space: Within normal limits. Parotids/submandibular: Within normal limits. Thyroid gland: The thyroid gland is enlarged and mildly heterogeneous. There are several calcificat ions seen. There is a 2.1 cm hypodense nodule in the lower pole of the right thyroid gland. The thy roid gland extends into the superior mediastinum. The right lobe is larger than the left. There is mild leftward deviation of the trachea which results. Lymphadenopathy: There is scattered lymph nodes seen along the level one to level three all measurin g less than 8 mm in short axis diameter which are physiologic in nature. Trachea: Leftward deviation of the trachea secondary to the enlarged right lobe of the thyroid gland. Lung apices: Within normal limits. Bones: Within normal limits for the patient's age. There is a non fused posterior arch of C1 which i s likely developmental. Carotids/Jugular: Within normal limits. Soft tissues: Within normal limits. IMPRESSION: 1. Enlarged multinodular thyroid gland. It extends into the superior mediastinum and causes leftward deviation of the trachea. 2. Large mucous retention cyst or polyp in the left maxillary sinus. RADIATION DOSE DELIVERED: Total DLP Total DLP DATA REPOSITORY: All CT scans at this facility are submitted to the National Radiology Data Registry (NRDR) Dose Index Registry (DIR) with the [employer] ([employer]). RADIATION OPTIMIZATION: All CT scans at this facility use at least one of these dose optimization te chniques: automated exposure control; mA and/or kV adjustment per patient size (includes targeted exa ms where dose is matched to clinical indication); or iterative reconstruction.
[2023-04-01 17:38] LABS: T3, Total 208 ng/dL (97-169)
== END ==
PROVIDERS: PCP Nurse Practitioner Family; Visit Provider Student in an Organized Health Care Education/Training Program
DX: E04.2 Nontoxic multinodular goiter (principal); J33.8 Other polyp of sinus
CPT/HCPCS: 70491; 82565; 84439; 84443; 84480

== ENCOUNTER 2023-04-08 00:52 | Outpatient (CLI) | payer BC, SELFPAY ==
[2023-04-08 11:27] LABS: CREATININE 0.8 mg/dL (0.55-1.02); Estimated GFR 82.23 (mL/min/1.73m2)
== END 2023-04-08 00:53 | disposition home or self-care (01) ==
LOC: LBO 00:52
PROVIDERS: PCP Nurse Practitioner Family; Visit Provider Student in an Organized Health Care Education/Training Program
DX: E04.2 Nontoxic multinodular goiter (principal)
CPT/HCPCS: 36415; 82565

== ENCOUNTER 2023-04-13 14:41 | Outpatient (REF) | payer BC, SELFPAY ==
[2023-04-13 14:52] LABS: Bilirubin Negative (Negative); Blood Trace-intact (Negative); Clarity Cloudy (Clear); Glucose Negative (Negative); Ketones Negative (Negative); Leukocyte Esterase Negative (Negative); Nitrite Negative (Negative); pH 8.5 (5-8)
[2023-04-13 15:08] LABS: Bacteria Many HPF (Negative); C & S Indicated? C&S Done As Ordered; Casts Negative LPF (Negative); Crystals Moderate Triple Phos HPF (Negative); Epithelial Cells Few HPF (Negative); Mucus Negative (Negative); RBC 0-2 HPF (0-2)
== END 2023-04-13 14:42 | disposition home or self-care (01) ==
LOC: LBN 14:41
PROVIDERS: PCP Nurse Practitioner Family; Visit Provider Urology
DX: N39.0 Urinary tract infection, site not specified (principal)
CPT/HCPCS: 87077; 81003; 81015; 87086

== ENCOUNTER 2023-04-22 03:26 | Outpatient (CLI) | payer BC, SELFPAY ==
[2023-04-22 12:41] LABS: ALT 26 U/L (14-59); AST 25 U/L (15-37); Albumin 3.2 g/dL (3.4-5.0); Alkaline Phosphatase 88 U/L (46-116); Bilirubin, Direct 0.2 mg/dL (0.0-0.2); Bilirubin, Total 0.7 mg/dL (0.2-1.0); FREE T4 0.97 ng/dL (0.76-1.46); TSH 1.14 uIU/mL (0.36-3.74); Total Protein 7.5 g/dL (6.4-8.2)
[2023-04-22 19:28] LABS: T3, Total 221 ng/dL (97-169)
== END 2023-04-22 03:27 | disposition home or self-care (01) ==
LOC: LOS 03:27
PROVIDERS: PCP Nurse Practitioner Family; Visit Provider Student in an Organized Health Care Education/Training Program
DX: E04.2 Nontoxic multinodular goiter (principal)
CPT/HCPCS: 36415; 80076; 84439; 84443; 84480

== ENCOUNTER → 2023-06-16 03:00 | Outpatient (CLI) | payer BC, SELFPAY ==
--- NOTE | 2023-06-16 | DI.NM_ITS ---
Exam(s) NM I123 THYROID UP SC DAY 2 CLINICAL HISTORY: HYPERTHYROIDISM, E05.90 WITH GOITER. COMPARISON: CT CT NECK W from 04/01/2023 NM NM I123 THYROID UP SC DAY 1 from 06/15/2023 TECHNIQUE: Capsule Dose: 298 uCi I-123 Images: At 6 hours and 24 hours. FINDINGS: Thyroid uptake at 4 hours was 20 percent. The total radioiodine uptake was 39% at 24 hours. IMPRESSION: 1. Total radioiodine uptake of 39%. SNM Guidelines: Normal uptake values 10-35%. Graves Uptake >50-80%. DATA REPOSITORY:
== END ==
PROVIDERS: PCP Nurse Practitioner Family; Visit Provider Student in an Organized Health Care Education/Training Program
DX: E05.90 Thyrotoxicosis, unspecified without thyrotoxic crisis or storm (principal)
CPT/HCPCS: 78014; A9512

== ENCOUNTER 2023-08-13 05:03 | Outpatient (CLI) | payer BC, SELFPAY ==
[2023-08-13 12:25] LABS: Hemoglobin A1C 6.7 % (<5.7)
[2023-08-13 12:33] LABS: ALT 38 U/L (14-59); AST 26 U/L (15-37); Albumin 3.4 g/dL (3.4-5.0); Alkaline Phosphatase 115 U/L (46-116); Anion Gap 10.1 mmol/L (3-11); BUN 13 mg/dL (7-18); Bilirubin, Direct 0.1 mg/dL (0.0-0.2); Bilirubin, Total 0.7 mg/dL (0.2-1.0); CO2 28.9 mmol/L (21.0-32.0); CREATININE 0.8 mg/dL (0.55-1.02); Calcium 8.8 mg/dL (8.5-10.1); Calculated LDL 126 mg/dL (<100); Chloride 100 mmol/L (98-107); Cholesterol 188 mg/dL (<200); Estimated GFR 82.23 (mL/min/1.73m2); Glucose 118 mg/dL (74-106); HDL Cholesterol 35 mg/dL (40-60); Potassium 3.7 mmol/L (3.5-5.1); Sodium 139 mmol/L (136-145); Total Protein 7.2 g/dL (6.4-8.2); Triglyceride 137 mg/dL (<150)
[2023-08-13 12:35] LABS: FREE T4 0.85 ng/dL (0.76-1.46); TSH 0.76 uIU/Ml (0.36-3.74)
[2023-08-13 18:16] LABS: T3, Total 212 ng/dL (97-169)
[2023-08-13 19:12] LABS: Hepatitis C Ab w Rflx HCV PCR Negative (Negative)
== END 2023-08-13 05:04 | disposition home or self-care (01) ==
LOC: LOS 05:03
PROVIDERS: PCP Nurse Practitioner Family; Visit Provider Student in an Organized Health Care Education/Training Program
DX: R73.03 Prediabetes (principal); I10 Essential (primary) hypertension
CPT/HCPCS: 36415; 80053; 80061; 80076; 86803; 83036; 84439; 84443; 84480

== ENCOUNTER 2023-09-24 01:55 | Outpatient (CLI) | payer MEDICARE, SELFPAY ==
[2023-09-24 12:43] LABS: TSH (W/Ref FT4) < 0.01 uIU/mL (0.36-3.74)
[2023-09-24 13:11] LABS: FREE T4 2.62 ng/dL (0.76-1.46)
== END 2023-09-24 01:56 | disposition home or self-care (01) ==
LOC: LOS 01:56
PROVIDERS: PCP Nurse Practitioner Family; Visit Provider Student in an Organized Health Care Education/Training Program
DX: E05.90 Thyrotoxicosis, unspecified without thyrotoxic crisis or storm (principal)
CPT/HCPCS: 36415; 84439; 84443

== ENCOUNTER 2023-10-13 14:06 | Outpatient (CLI) | payer MEDICARE, SELFPAY ==
--- NOTE | 2023-10-13 13:45 | DI.RAD_ITS ---
Exam(s) XR HIP PELVIS ADULT BL EXAM: XR HIP PELVIS ADULT BL CLINICAL HISTORY: BILATERAL HIP PAIN. TECHNIQUE: 2D digital imaging was performed of the pelvis and bilateral hips. Three images were obt ained. AP pelvis and lateral views of both hips were obtained. COMPARISON: No exams were available for comparison FINDINGS: BONES: No acute fracture is present. No bony destructive lesion is seen. JOINTS: No dislocation present. There is narrowing of the hip joint spaces bilaterally. Mild spurrin g is seen of the right superior acetabulum. The sacroiliac joints and symphysis pubis are well maint ained. SOFT TISSUE: Normal. IMPRESSION: Mild degenerative changes of the hips bilaterally. DATA REPOSITORY: RADIATION DOSE DELIVERED:
== END 2023-10-13 14:07 | disposition home or self-care (01) ==
LOC: DIORS 14:06
PROVIDERS: PCP Nurse Practitioner Family; Referring Provider Nurse Practitioner Family; Visit Provider Student in an Organized Health Care Education/Training Program
DX: M25.551 Pain in right hip (principal); M25.552 Pain in left hip
CPT/HCPCS: 20610; 73521; 99213; J1010

== ENCOUNTER 2023-10-29 01:01 | Outpatient (CLI) | payer MEDICARE, SELFPAY ==
[2023-10-29 12:49] LABS: FREE T4 1.42 ng/dL (0.76-1.46); TSH < 0.01 uIU/Ml (0.36-3.74)
== END 2023-10-29 01:02 | disposition home or self-care (01) ==
LOC: LOS 01:01
PROVIDERS: PCP Nurse Practitioner Family; Visit Provider Student in an Organized Health Care Education/Training Program
DX: E04.2 Nontoxic multinodular goiter (principal)
CPT/HCPCS: 36415; 84439; 84443

== ENCOUNTER → 2023-11-17 00:52 | Outpatient (CLI) | payer MEDICARE, SELFPAY ==
--- NOTE | 2023-11-17 12:30 | DI.US_ITS ---
APPROVED REPORT EXAM: Comprehensive 2D, Doppler, and color-flow Echocardiogram Patient Location: Out-Patient Trimming Operator: Ricardo Butler RDCS (AE) Indications: Loud systolic murmur Other Information Study Quality: Technically Limited. Technically limited study due to body habitus. Conclusion Technically difficult and overall very limited study Left ventricular systolic function appears normal. Right ventricle appears mildly enlarged Atria are grossly normal in size Aortic valve is calcified with mild stenosis. Mean gradient is 18 mmHg Within the limits of the study there is no additional valvular disease identified Wall motion Left Ventricle Left ventricle is not well visualized due to body habitus. There is no ventricular septal defect visu alized. Right Ventricle Ventricle may be enlarged Right ventricular systolic function could not be assessed. Atria The left atrium size is normal. The right atrium size is normal. The interatrial septum is intact wit h no evidence for an atrial septal defect. Aortic Valve Aortic valve is calcified. Number of aortic valve leaflets could not be assessed. Mild aortic stenosi s. Highest mean aortic valve gradient is 18.36 mmHg. Peak aortic valve gradient is 31.56 mmHg. Mitral Valve Mitral valve is not well visualized, but grossly normal in structure. Trace mitral regurgitation. Tricuspid Valve The tricuspid valve is normal in structure. There is no tricuspid valve stenosis. Trace tricuspid reg urgitation. Unable to assess PA pressure. Pulmonic Valve Pulmonic valve is not well visualized. Great Vessels Aortic root is not well visualized. Ascending aorta is not well visualized. Aortic arch is normal in caliber. IVC is normal in size and collapses >50% with inspiration. Pericardium There is no pericardial effusion. M-Mode TAPSE 1.95 cm (M/F) >1.7 Auto EF LV EDV A4C 81.5 mL LV EDV A2C 77.8 mL LV EDV BP LV ESV A4C 32.2 mL LV ESV A2C 31.7 mL LV ESV BP LVEF(%) A4C 60.5 % LVEF(%) A2C 59.2 % LVEF(%) BP LV SV A4C 49.3 ml LV SV A2C 46.1 ml LV SV BP LV CO A4C 3.5 L/min LV CO A2C 3.2 L/min LV CO BP HR A4C 70.59 BPM HR A2C 69.77 BPM LV EDV Index (BP) LA Volume LA Length A4C 4.3 cm LA Length A2C 5.0 cm LA Area A4C s 12.71 cm2 LA Area A2C s 15.51 cm2 LA Vol A4C A-L 31.88 mL LA Vol A2C A-L 40.87 mL LA Vol Biplane A-L 38.9 mL LA Vol/BSA A4C A-L LA Vol/BSA A2C A-L LA Vol/BSA BP A-L 18.2 mL/m2 LA Vol A4C MOD 31.4 mL LA Vol A2C MOD 38.1 mL LA Vol BP MOD 36.8 mL RA Volume RA Area A4C 9.0 cm2 RA ESV A4C (A-L) 19.9mL RA Vol/BSA A4C A-L RA Length A4C 3.5 cm RA ESV A4C (MOD) 18.0mL LV Diastology MV E' medial 0.067 (>0.07 m/s) MV E Vmax 1.05 (0.4-1.3 m/s) MV E/E' MED 15.67 (<14) MV A Vmax 1.00 (0.4-1.3 m/s) MV E' lateral 0.102 (>0.1 m/s) E/A Ratio 1.0 MV E/E' LAT 10.30 (<14) MV E' Average 0.084 m/s MV E/E'(average) 12.43 Aortic Valve AoV Vmax 2.81 m/s LVOT Vmax 1.16 m/s AoV Peak Grad 31.6 mmHg LVOT Peak Grad 5.4 mmHg AoV VTI 0.590 m LVOT VTI 0.274 m AoV Mean Waqas. 2.01 m/s LVOT Mean Grad 3.5 mmHg AoV Mean Grad 18.4 mmHg AV Regurg Peak Gr. 31.56 mmHg Velocity Ratio 0.41 Mitral Valve MV DT 193 (160-240 msec) MV Vmax TIPS 1.01 m/s MV Mean Grad 1.8 (<2mmHg) MV VTI 0.331 m
== END ==
PROVIDERS: PCP Nurse Practitioner Family; Visit Provider Nurse Practitioner Family
DX: R01.1 Cardiac murmur, unspecified (principal)
CPT/HCPCS: 93306

== ENCOUNTER 2023-11-24 01:16 | Outpatient (CLI) | payer MEDICARE, SELFPAY ==
--- NOTE | 2023-11-24 07:45 | DI.MAMMO_ITS ---
Exam(s) MAMMO SCREENING EXAM: MAMMO SCREENING CLINICAL HISTORY: screening,Z12.39 TECHNIQUE: Bilateral full field digital CC and MLO mammographic images were obtained with 3D tomosyn thesis and utilizing computer aided detection (CAD). COMPARISON: Available for comparison. FINDINGS: Masses/Architectural Distortion: There is a new 5 mm spiculated nodule in the central upper right rosina ast on the MLO view 8.7 cm from the nipple. Microcalcifications: No suspicious pleomorphic-type are seen. Skin Thickening/Nipple Retraction: None. IMPRESSION: 1. New right breast nodule. 2. This area should be further evaluated with a spot compression view. Ultrasound should also be ind icated at that time. BI-RADS Category 0 - Incomplete: Need additional imaging evaluation Breast Density - Category B - Scattered areas of fibroglandular density Breast density category C or D implies that the patient has dense breast tissue. Dense breast tissue is very common and is not abnormal but dense breast tissue can make it harder to find cancer on a ma mmogram. Also, dense breast tissue may increase their breast cancer risk. This information about the result of the mammogram report was provided to the patient to raise their awareness. Use this report when you speak with the patient about their risks for breast cancer, which includes their family hist ory. At that time, you may recommend for more screening tests (Ultrasound or MRI) as they might be us eful based on their risk. A negative radiographic report should not delay biopsy if a dominant or clinically suspicious mass is present. Up to ten percent of cancers are not identified on mammography. A negative report may reinforce clinical impression. Adenosis and dense breasts may obscure an underlying neoplasm. False positive reports average 6 to 10%. Patient will receive a letter notifying them of these results.
== END 2023-11-24 01:36 ==
LOC: DI 01:16
PROVIDERS: PCP Nurse Practitioner Family; Visit Provider Nurse Practitioner Family
DX: Z12.31 Encounter for screening mammogram for malignant neoplasm of breast (principal)
CPT/HCPCS: 77063; 77067

== ENCOUNTER 2023-11-29 01:57 | Outpatient (CLI) | payer MEDICARE, SELFPAY ==
--- NOTE | 2023-11-29 | DI.MAMMO_ITS ---
Exam(s) MAMMO SCREEN CALL BACK UNI EXAM: MAMMO SCREEN CALL BACK UNI CLINICAL HISTORY: New 5 mm spiculated nodule in central upper rt breast 8.7 cm from nipple TECHNIQUE: Spot compression views with tomographic imaging were performed. COMPARISON: 2014 through recent exam 24 November 2023. FINDINGS: No suspicious masses or suspicious microcalcifications are seen. No persistent abnormality is seen on the additional views performed. The findings are consistent wit h overlying fibroglandular tissue. There has been no significant change from prior exams. IMPRESSION: BI-RADS Category 1, Negative Yearly screening mammography is recommended. Breast Density - Category B, scattered fibroglandular densities.
== END 2023-11-29 02:17 ==
LOC: DI 01:58
PROVIDERS: PCP Nurse Practitioner Family; Visit Provider Nurse Practitioner Family
DX: R92.8 Other abnormal and inconclusive findings on diagnostic imaging of breast (principal); Z12.31 Encounter for screening mammogram for malignant neoplasm of breast
CPT/HCPCS: 77063; 77067

== ENCOUNTER 2023-12-30 13:15 | Outpatient (CLI) | payer MEDICARE, SELFPAY ==
--- NOTE | 2023-12-30 15:04 | DI.RAD_ITS ---
Exam(s) XR CHEST 2V PA LATERAL EXAM: XR CHEST 2V PA LATERAL CLINICAL HISTORY: Cough, R05.9 TECHNIQUE: 2D digital imaging was performed. Two views. COMPARISON: No exams were available for comparison FINDINGS: HEART: Normal size. Aorta: Tortuous. PULMONARY VASCULATURE: Normal. MEDIASTINUM: Unremarkable. LUNGS: Clear. PLEURAL SPACE: No pleural effusion or pneumothorax. BONE:Unremarkable for age. SOFT TISSUES: Unremarkable. IMPRESSION: No acute abnormality. DATA REPOSITORY: RADIATION DOSE DELIVERED:
== END 2023-12-30 13:35 ==
LOC: DI 13:16
PROVIDERS: PCP Nurse Practitioner Family; Visit Provider Nurse Practitioner Family
DX: R05.9 Cough, unspecified (principal)
CPT/HCPCS: 71046

== ENCOUNTER 2024-01-06 02:55 | Outpatient (CLI) | payer MEDICARE, SELFPAY ==
[2024-01-06 12:55] LABS: FREE T4 0.88 ng/dL (0.76-1.46); TSH 0.31 uIU/Ml (0.36-3.74)
== END 2024-01-06 02:56 | disposition home or self-care (01) ==
LOC: LOS 02:56
PROVIDERS: PCP Nurse Practitioner Family; Visit Provider Student in an Organized Health Care Education/Training Program
DX: E04.2 Nontoxic multinodular goiter (principal)
CPT/HCPCS: 36415; 84439; 84443

== ENCOUNTER → 2024-02-15 15:05 | Outpatient (BNVA) | payer MEDICARE, SELFPAY | PROVIDERS: PCP Nurse Practitioner Family; Visit Provider Nurse Practitioner Gerontology | DX: Z87.440 Personal history of urinary (tract) infections (principal) | CPT/HCPCS: 99213 ==

== ENCOUNTER 2024-02-28 02:56 | Outpatient (CLI) | payer MEDICARE, SELFPAY ==
[2024-02-28 12:53] LABS: FREE T4 0.92 ng/dL (0.76-1.46); TSH 0.86 uIU/mL (0.36-3.74)
[2024-02-28 13:26] LABS: COMMENT (LAB VIEW ONLY) 56.05 mg/dL; Microalb ug/mg Crea 14.3 ug/mg Cr
== END 2024-02-28 02:57 | disposition home or self-care (01) ==
LOC: LOS 02:56
PROVIDERS: PCP Nurse Practitioner Family; Visit Provider Student in an Organized Health Care Education/Training Program
DX: E11.9 Type 2 diabetes mellitus without complications (principal); E04.2 Nontoxic multinodular goiter
CPT/HCPCS: 36415; 82043; 82570; 84439; 84443

== ENCOUNTER → 2024-02-29 10:36 | Outpatient (BNVA) | payer MEDICARE, SELFPAY | PROVIDERS: PCP Nurse Practitioner Family; Referring Provider Nurse Practitioner Family; Visit Provider Student in an Organized Health Care Education/Training Program | DX: M70.61 Trochanteric bursitis, right hip (principal); M70.62 Trochanteric bursitis, left hip | CPT/HCPCS: 20610; J1010 ==

== ENCOUNTER 2024-06-01 11:50 | Outpatient (CLI) | payer MEDICARE, SELFPAY ==
[2024-06-01 14:06] LABS: FREE T4 1.38 ng/dL (0.76-1.46); TSH 0.01 uIU/mL (0.36-3.74)
== END 2024-06-01 11:51 | disposition home or self-care (01) ==
LOC: LOS 11:53
PROVIDERS: PCP Nurse Practitioner Family; Visit Provider Student in an Organized Health Care Education/Training Program
DX: E05.90 Thyrotoxicosis, unspecified without thyrotoxic crisis or storm (principal)
CPT/HCPCS: 36415; 84439; 84443

== ENCOUNTER 2024-07-10 01:46 | Outpatient (CLI) | payer MEDICARE, SELFPAY ==
[2024-07-10 13:29] LABS: FREE T4 1.48 ng/dL (0.76-1.46)
[2024-07-10 13:30] LABS: TSH < 0.01 uIU/mL (0.36-3.74)
[2024-07-10 21:47] LABS: T3,Free 5.3 pg/mL (2.8-5.3)
== END 2024-07-10 01:47 | disposition home or self-care (01) ==
LOC: LOS 01:46
PROVIDERS: PCP Nurse Practitioner Family; Visit Provider Student in an Organized Health Care Education/Training Program
DX: E05.20 Thyrotoxicosis with toxic multinodular goiter without thyrotoxic crisis or storm (principal)
CPT/HCPCS: 36415; 84439; 84443; 84481

== ENCOUNTER → 2024-07-25 09:47 | Outpatient (BNVA) | payer MEDICARE, SELFPAY | PROVIDERS: PCP Nurse Practitioner Family; Referring Provider Nurse Practitioner Family; Visit Provider Student in an Organized Health Care Education/Training Program | DX: M70.61 Trochanteric bursitis, right hip (principal); M70.62 Trochanteric bursitis, left hip; E05.90 Thyrotoxicosis, unspecified without thyrotoxic crisis or storm | CPT/HCPCS: 99214 ==

== ENCOUNTER 2024-09-18 02:41 | Outpatient (CLI) | payer MEDICARE, SELFPAY ==
[2024-09-18 12:38] LABS: FREE T4 0.99 ng/dL (0.76-1.46)
== END 2024-09-18 02:42 | disposition home or self-care (01) ==
LOC: LOS 02:41
PROVIDERS: PCP Nurse Practitioner Family; Visit Provider Nurse Practitioner Family
DX: E05.20 Thyrotoxicosis with toxic multinodular goiter without thyrotoxic crisis or storm (principal)
CPT/HCPCS: 36415; 84439; 84443

== ENCOUNTER 2024-10-02 02:09 | Outpatient (CLI) | payer MEDICARE, SELFPAY ==
--- NOTE | 2024-10-02 | DI.DEXA_ITS ---
Exam(s) XR DEXA BONE DENSITY W/WO MICHELLE EXAM: XR DEXA BONE DENSITY W/WO MICHELLE CLINICAL HISTORY: Asymptomatic postmeno state Z78.0 Hyperthyroidism TECHNIQUE: COMPARISON: CR XR HIP PELVIS ADULT BL from 10/13/2023 FINDINGS: Lateral Spine Image: Unremarkable. No compression deformities identified. Left hip: Total T-Score: 1.2 Total Z-Score: 2.5 T- and Z-scores: Within normal limits. Lumbar Spine: Total T-Score: 0.6 Total Z-Score: 2.5 T- and Z-scores: Within normal limits. IMPRESSION: No evidence of osteoporosis.
== END 2024-10-02 02:29 ==
LOC: DI 02:09
PROVIDERS: PCP Nurse Practitioner Family; Visit Provider Student in an Organized Health Care Education/Training Program
DX: Z13.820 Encounter for screening for osteoporosis (principal); Z78.0 Asymptomatic menopausal state
CPT/HCPCS: 77080

== ENCOUNTER 2024-10-20 20:52 | Emergency (ER) | payer MEDICARE, SELFPAY ==
[2024-10-20 21:06] VITALS: BP 154/62; PULSE 93; RESP 18; TEMP 36.8; O2SAT 97
[2024-10-20] MEDS: diphenhydrAMINE 25 MG CAP PO (22:16)
[2024-10-20 22:28] LABS: Abs Immature Grans 0.05 10^3/uL (0.0-0.06); HCT 41.2 % (36.0-46.0); HGB 14.2 g/dL (11.2-15.7); Immature Grans % 0.4 %; MCH 31.8 pg (27.0-33.0); MCHC 34.5 % (32.0-36.0); MCV 92 fL (80-95); MPV 9.8 fL (8.0-11.0); Platelet Count 170 10^3/uL (130-400); RBC 4.46 10^6/uL (3.93-5.22); RDW 12.6 % (11.7-14.6); RDW-SD 42.9 fL; WBC 11.55 10^3/uL (4.4-10.8)
[2024-10-20 22:54] LABS: ALT 45 U/L (14-59); AST 33 U/L (15-37); Albumin 3.1 g/dL (3.4-5.0); Alkaline Phosphatase 107 U/L (46-116); Anion Gap 9.9 mmol/L (3-11); BUN 13 mg/dL (7-18); Bilirubin, Total 0.3 mg/dL (0.2-1.0); CO2 30.1 mmol/L (21.0-32.0); Calcium 8.7 mg/dL (8.5-10.1); Chloride 101 mmol/L (98-107); Estimated GFR 70.51 (mL/min/1.73m2); Glucose 169 mg/dL (74-106); Potassium 3.7 mmol/L (3.5-5.1); Sodium 141 mmol/L (136-145); TSH (W/Ref FT4) 0.66 uIU/mL (0.36-3.74); Total Protein 6.8 g/dL (6.4-8.2)
[2024-10-20 23:37] VITALS: BP 134/57; PULSE 82; RESP 18; O2SAT 94
--- NOTE | 2024-10-23 09:28 | W.ED.GENAD ---
Discharge Plan Disposition Patient Disposition: Home Condition: Stable Discharge Details Clinical Impression: Localized allergic contact urticaria, H/O thyroidectomy Primary Care Provider: Jazmín Wilburn ED Provider: Betzy Robb Home Meds and New Rx's Prescriptions: Continued (DME) Aerochamber MV Spacer See Rx Instructions .Route Qty: 1 0RF Rx Instructions: As directed (DME) blood-glucose meter [OneTouch Ultra2 Meter] Kit See Rx Instructions .ROUTE .MEDSUPPLY Qty: 1 2RF Rx Instructions: Check blood sugar twice a day (DME) OneTouch Ultra Test Strip See Rx Instructions .ROUTE .MEDSUPPLY Qty: 200 3RF Rx Instructions: Check blood sugar twice a day estradiol 0.01 % (0.1 mg/gram) cream 1 applic VG DIRECTED Qty: 60 3RF Rx Instructions: 1 time per week (DME) lancets [OneTouch Delica Plus Lancet] 33 gauge misc See Rx Instructions .Route Qty: 200 3RF Rx Instructions: Check blood sugar twice a day losartan 100 mg tablet 100 mg PO DAILY Qty: 90 3RF hydrochlorothiazide 25 mg tablet 25 mg PO DAILY Qty: 90 3RF pravastatin 20 mg tablet 20 mg PO DAILY Qty: 90 3RF calcitriol 0.5 mcg capsule levothyroxine 150 mcg tablet Patient Comments: TAKE ONE TABLET BY MOUTH EVERY DAY acetaminophen 500 mg capsule 1,000 mg PO .q8r PRN calcium carbonate 500 mg calcium (1,250 mg) tablet,chewable 1,000 mg PO TID Discharge Instructions Instructions: Allergic Reaction ED Additional Instructions: Take Claritin during day 10 mg and take Benadryl 25 mg at night to treat for allergic reaction, continue on the calcitriol Should your symptoms worsen, I recommend stopping the calcitriol and calling your plasterer journeyman at [facility] for further recommendations and returning for reassessment in the emergency department Referrals: Jazmín Wilburn NP [Primary Care Provider, Medicine] Discharge Data Discharge Date/Time-TO BE ENTERED AT DEPARTURE: 10/20/24 23:38 HPI General Date/Time Provider Initiated Documentation: 10/20/24 21:00. HPI Narrative: 64-year-old female post-thyroidectomy 3 days ago, started on calcitriol, reports urticarial lesions right of incision site. No dysphagia, SOB, fever, chills, similar symptoms, allergic reactions, or pain. States dry mouth. Related Data Home Medications ?Medication ?Instructions ?Recorded ?Confirmed blood sugar diagnostic (OneTouch #200 ea 08/19/22 07/25/24 Ultra Test strips) blood-glucose meter (OneTouch #1 ea 08/19/22 07/25/24 Ultra2 Meter kit) lancets 33 gauge (OneTouch Delica #200 ea 12/17/23 07/25/24 Plus Lancet) inhalational spacing device #1 ea 12/30/23 07/25/24 (Aerochamber MV spacer) estradiol 0.01% (0.1 mg/gram) 1 applic vaginal DIRECTED #60 02/15/24 10/20/24 vaginal cream grams losartan 100 mg tablet 100 mg PO DAILY #90 tabs 03/01/24 10/20/24 hydrochlorothiazide 25 mg tablet 25 mg PO DAILY #90 tabs 08/21/24 10/20/24 pravastatin 20 mg tablet 20 mg PO DAILY #90 tabs 08/21/24 10/20/24 acetaminophen 500 mg capsule 1,000 mg PO .q8r PRN 10/20/24 10/20/24 calcitriol 0.5 mcg capsule mcg 10/20/24 calcium carbonate 1,000 mg PO TID 10/20/24 10/20/24 levothyroxine 150 mcg tablet mcg 10/20/24 Previous Rx's ?Medication ?Instructions ?Recorded blood sugar diagnostic (OneTouch #200 ea 08/19/22 Ultra Test strips) blood-glucose meter (OneTouch #1 ea 08/19/22 Ultra2 Meter kit) lancets 33 gauge (OneTouch Delica #200 ea 12/17/23 Plus Lancet) inhalational spacing device #1 ea 12/30/23 (Aerochamber MV spacer) estradiol 0.01% (0.1 mg/gram) 1 applic vaginal DIRECTED #60 02/15/24 vaginal cream grams losartan 100 mg tablet 100 mg PO DAILY #90 tabs 03/01/24 hydrochlorothiazide 25 mg tablet 25 mg PO DAILY #90 tabs 08/21/24 pravastatin 20 mg tablet 20 mg PO DAILY #90 tabs 08/21/24 Allergies Allergy/AdvReac Type Severity Reaction Status Date / Time Sulfa (Sulfonamide Allergy Severe Anaphylaxis Verified 10/20/24 21:10 Antibiotics) ibuprofen Allergy Intermediate Swelling Verified 10/20/24 21:10 amlodipine AdvReac Mild Peripheral Verified 10/20/24 21:10 edema doxycycline AdvReac SORE Verified 10/20/24 21:10 MOUTH/FUZZY TONGUE General Stated Complaint: Allergic PAZ: 3 Exam Narrative Exam Narrative: General Appearance: Alert and oriented. Vital signs: Within normal limits. HEENT: Normal phonation. Patent oropharynx, midline uvula, no tongue or facial swelling. Respiratory: Lungs clear. Skin: 6 urticarial lesions adjacent to well-appearing thyroidectomy scar without dehiscence. Neurological: Normal. Course Vital Signs Vital signs: Vital Signs Temperature 36.8 C 10/20/24 21:06 Pulse 93 H 10/20/24 21:06 Respiratory Rate 18 10/20/24 21:06 Blood Pressure 154/62 H 10/20/24 21:06 Pulse Oximetry 97 10/20/24 21:06 Temperature 36.8 C 10/20/24 21:06 Temperature Source Oral 10/20/24 21:06 Pulse 82 10/20/24 23:37 Respiratory Rate 18 10/20/24 23:37 Respiratory Effort Normal 10/20/24 21:09 Respiratory Pattern Normal 10/20/24 21:09 Blood Pressure 134/57 L 10/20/24 23:37 Pulse Oximetry 94 10/20/24 23:37 Oxygen Delivery Method Room Air 10/20/24 21:06 Oxygen Flow Rate 0 10/20/24 21:06 Pain Level 0 10/20/24 21:06 Lab/Test Results Lab/Test Results: Laboratory Tests Range/Units 10/20/24 22:20 WBC (4.4-10.8) 10^3/uL 11.55 H RBC (3.93-5.22) 10^6/uL 4.46 Hgb (11.2-15.7) g/dL 14.2 Hct (36.0-46.0) % 41.2 MCV (80-95) fL 92 MCH (27.0-33.0) pg 31.8 MCHC (32.0-36.0) % 34.5 RDW (11.7-14.6) % 12.6 Plt Count (130-400) 10^3/uL 170 MPV (8.0-11.0) fL 9.8 Immature Gran % % 0.4 Neutrophils % % 52.2 Lymphocytes % % 38.6 Monocytes % % 6.7 Eosinophils % % 1.8 Basophils % % 0.3 Nucleated RBC % (0.0-0.3) % 0.0 Absolute Neutrophils (1.2-6.7) 10^3/uL 6.03 Absolute Lymphocytes (1.2-3.4) 10^3/uL 4.46 H Absolute Monocytes (0.1-0.8) 10^3/uL 0.77 Absolute Eosinophils (0.0-0.7) 10^3/uL 0.21 Absolute Basophils (0.0-0.2) 10^3/uL 0.03 Sodium (136-145) mmol/L 141 Potassium (3.5-5.1) mmol/L 3.7 Chloride (98-107) mmol/L 101 Carbon Dioxide (21.0-32.0) mmol/L 30.1 Anion Gap (3-11) mmol/L 9.9 BUN (7-18) mg/dL 13 Creatinine (0.55-1.02) mg/dL 0.9 Est GFR (CKD-EPI 2020) (mL/min/1.73m2) 70.51 Glucose (74-106) mg/dL 169 H Calcium (8.5-10.1) mg/dL 8.7 Total Bilirubin (0.2-1.0) mg/dL 0.3 AST (15-37) U/L 33 ALT (14-59) U/L 45 Alkaline Phosphatase (46-116) U/L 107 Total Protein (6.4-8.2) g/dL 6.8 Albumin (3.4-5.0) g/dL 3.1 L TSH (0.36-3.74) uIU/mL 0.66 Medical Decision Making Initial Assessment: 64-year-old female with urticarial lesions adjacent to thyroidectomy scar, dry mouth, no difficulty swallowing, no shortness of breath, fever, chills, pain, or history of similar symptoms or allergic reactions. Alert and oriented. No tongue or facial swelling. Lungs clear to auscultation. Differential Diagnosis: - Localized allergic reaction: Considered due to urticarial lesions post-thyroidectomy. No evidence of anaphylaxis. Plan includes antihistamines and monitoring. ED Course: - Given Benadryl with mild symptomatic improvement. - Encouraged to take Claritin and Benadryl daily. - Advised to contact surgeon and plasterer journeyman on Wednesday for low postoperative PTH. - Continue calcitriol. - Reviewed return precautions; patient expressed understanding. Final Assessment: Localized allergic reaction with urticarial lesions post-thyroidectomy. Mild improvement with Benadryl. Plan includes daily antihistamines and follow-up with surgeon and plasterer journeyman. Clinical Impression: - Localized allergic reaction Disposition: - Discharge - Follow-Up: Contact surgeon and plasterer journeyman on Wednesday. Patient Education: Reviewed return precautions; patient expressed understanding. MDM Components Evaluation: - Number of Differential Diagnoses or Management Options: Localized allergic reaction - Amount and Complexity of Data Reviewed: Postoperative PTH levels, physical examination findings - Risk of Complication and Morbidity or Mortality: Low risk of anaphylaxis, monitoring for worsening symptoms PFSH All Active Problems (Updated 10/20/24 @ 23:31 by SADIQ Erickson) H/O thyroidectomy (Chronic) Localized allergic contact urticaria (Acute) Greater trochanteric bursitis of both hips (Acute) Bilateral corticosteroid injections 10/13/23, 02/29/24 History of endometrial cancer (Chronic ~2014) FIGO stage 1A grade 1, s/p [facility] 11/29/14 Type 2 diabetes mellitus (Chronic) Hyperthyroidism (Chronic) Multinodular goiter (Chronic) S/p [facility] treatment June 2023 Essential hypertension (Chronic) Aortic stenosis (Chronic) Mild on 2023 echo although study quality limited, repeat 2024 Hyperlipidemia (Chronic) Recurrent UTI (Chronic) Followed by urology Obesity, Class III, BMI 40-49.9 (morbid obesity) (Chronic) Diverticulosis of colon (Chronic) Medical History Rectal bleeding Anal fistula Endometrial cancer (12/26/14) FIGO stage 1A grade 1, s/p [facility] 11/29/14. Yearly inspection of vaginal cuff and bimanual exam recommended. 08/2021-no signs of recurrence Herpes zoster without complication Surgical History History of rectal surgery (06/06/13) fistulotomy S/P tonsillectomy and adenoidectomy S/P section S/P vaginal hysterectomy (11/29/14) [facility] with ovarian conservation. Jennifer 1 Stage 1 endometrial CA. No additional treatment required. History of colonoscopy Family History Mother , 89 Essential hypertension Hyperlipidemia Father , 83 Essential hypertension Sister Heart disease Hyperlipidemia Hypertension Stroke Sister Essential hypertension Hyperlipidemia Brother Essential hypertension Hyperlipidemia Son No problems noted. Son No problems noted. Maternal Grandfather , 68 No problems noted. Paternal Grandfather , 78 No problems noted. Maternal Grandmother , 76 No problems noted. Paternal Grandmother , 82 No problems noted. Social History Smoking/Tobacco Use Status: Never Second Hand Exposure: Yes (when child) Smoking risk assessment performed?: Yes Alcohol Intake: never Drug use: Never Substance use type: does not use Caregiver/Support person: No Household members: spouse and children Housing: house Pets and animals: Yes Pets and animals: dog(s) Do you think of yourself as: straight/heterosexual Current gender identity: female What is your relationship status?: How often do you talk on the phone with friends or family?: three or more times per week How often do you get together with friends or relatives?: once per week How often do you attend baptist or worship services?: 1-3 times per year Do you belong to any clubs or organized social groups?: no Panel score (0-1 are the most socially isolated patients): 2 What type of physical activity do you participate in: decline to answer Anca/Caodaism: Zoroastrian Special anca needs: No Do you feel safe at home: Yes Do you feel safe in your relationship?: Yes
== END 2024-10-20 23:38 | disposition home or self-care (01) ==
PROVIDERS: Emergency Provider Physician Assistant; PCP Nurse Practitioner Family
DX: L23.9 Allergic contact dermatitis, unspecified cause (principal); E89.0 Postprocedural hypothyroidism; E11.9 Type 2 diabetes mellitus without complications; I10 Essential (primary) hypertension; E78.5 Hyperlipidemia, unspecified; Z79.84 Long term (current) use of oral hypoglycemic drugs
CPT/HCPCS: 80053; 99283; 84443; 85025

== ENCOUNTER 2024-11-24 00:38 | Outpatient (CLI) | payer MEDICARE, SELFPAY ==
[2024-11-24 13:26] LABS: Calcium 8.9 mg/dL (8.5-10.1); Vitamin D 25 Total 42 ng/mL (30-100)
[2024-11-24 13:29] LABS: TSH (W/Ref FT4) < 0.01 uIU/mL (0.36-3.74)
== END 2024-11-24 00:39 | disposition home or self-care (01) ==
PROVIDERS: PCP Nurse Practitioner Family; Visit Provider Student in an Organized Health Care Education/Training Program
DX: E05.90 Thyrotoxicosis, unspecified without thyrotoxic crisis or storm (principal); E55.9 Vitamin D deficiency, unspecified
CPT/HCPCS: 36415; 82306; 82310; 83970; 84439; 84443

== ENCOUNTER → 2024-12-05 13:31 | Outpatient (BNVA) | payer MEDICARE, SELFPAY | PROVIDERS: PCP Nurse Practitioner Family; Visit Provider Student in an Organized Health Care Education/Training Program | DX: M70.61 Trochanteric bursitis, right hip (principal); M70.62 Trochanteric bursitis, left hip; M76.31 Iliotibial band syndrome, right leg; M76.32 Iliotibial band syndrome, left leg; Z68.42 Body mass index [BMI] 45.0-49.9, adult | CPT/HCPCS: 99214 ==

== ENCOUNTER 2025-01-19 00:41 | Outpatient (CLI) | payer MEDICARE, SELFPAY ==
[2025-01-19 14:51] LABS: Hemoglobin A1C 6.4 % (<5.7)
[2025-01-19 15:04] LABS: Albumin 3.4 g/dL (3.4-5.0); Calcium 8.8 mg/dL (8.5-10.1); TSH 0.02 uIU/mL (0.36-3.74)
[2025-01-19 15:35] LABS: Calculated LDL 101 mg/dL (<100); Cholesterol 150 mg/dL (<200); HDL Cholesterol 30 mg/dL (>or=50); Triglyceride 98 mg/dL (<150)
[2025-01-21 12:57] LABS: HIV-1/2 Ag & Ab Screen Negative (Negative)
[2025-01-22 10:21] LABS: HBs Antibody, Quant <3.1 mIU/mL (See Note); Hepatitis B Surface Antigen Negative (Negative)
== END 2025-01-19 00:42 | disposition home or self-care (01) ==
PROVIDERS: PCP Nurse Practitioner Family; Visit Provider Student in an Organized Health Care Education/Training Program
DX: E78.5 Hyperlipidemia, unspecified (principal); Z11.4 Encounter for screening for human immunodeficiency virus [HIV]; Z11.59 Encounter for screening for other viral diseases; R73.03 Prediabetes; E05.20 Thyrotoxicosis with toxic multinodular goiter without thyrotoxic crisis or storm
CPT/HCPCS: 36415; 80061; 86704; 86706; 87340; 87389; 82040; 82310; 83036; 83970; 84100; 84439; 84443

== ENCOUNTER → 2025-02-13 10:02 | Outpatient (BNVA) | payer MEDICARE, SELFPAY | PROVIDERS: PCP Nurse Practitioner Family; Visit Provider Nurse Practitioner Gerontology | DX: N39.0 Urinary tract infection, site not specified (principal) | CPT/HCPCS: 99213 ==

== ENCOUNTER → 2025-02-14 02:00 | Outpatient (CLI) | payer MEDICARE, SELFPAY ==
--- NOTE | 2025-02-14 12:25 | DI.MAMMO_ITS ---
Exam(s) MAMMO SCREENING EXAM: MAMMO SCREENING CLINICAL HISTORY: screening,Z12.39. TECHNIQUE: Bilateral full field digital CC and MLO mammographic images were obtained with 3D tomosynthesis and utilizing computer aided detection (CAD). COMPARISON: Prior mammograms were reviewed. FINDINGS: There has been no significant change in the appearance and distribution of the fibroglandular tissue. Multiple benign microcalcifications are again noted bilaterally There are no new spiculated masses nor new malignant appearing microcalcification groups. There is no significant architectural distortion nor skin thickening-retraction. IMPRESSION: No radiographic evidence of malignancy. BI-RADS Category 2 - Benign Findings Breast Density - Category A - The breast are almost entirely fatty. Breast density Category C or D implies that the patient has dense breast tissue. Dense breast tissue can make it harder to find cancer on a mammogram. Dense breast tissue is also associated with an increased risk of breast cancer. This information about the result of the mammogram report was provided to the patient to raise their awareness. Use this report when you speak with the patient about their risks for breast cancer, which includes their family history. At that time, you may recommend additional screening tests (Ultrasound or MRI) as these tests may add significant information. A negative radiographic report should not delay biopsy if a dominant or clinically suspicious mass is present. Up to ten percent of cancers are not identified on mammography. A negative report may reinforce clinical impression. Adenosis and dense breasts may obscure an underlying neoplasm. False positive reports average 6 to 10%. Patient will receive a letter notifying them of these results.
--- NOTE | 2025-02-14 12:45 | DI.US_ITS ---
APPROVED REPORT EXAM: Comprehensive 2D, Doppler, and color-flow Echocardiogram Patient Location: Out-Patient Physician Advisor: Nicolette Elena RDCS (AE) Indications: Aortic stenosis Other Information Study Quality: Fair. Technically limited study due to body habitus. Conclusion Technically difficult study Grossly normal left ventricular chamber size wall thickness and systolic function Right ventricle and both atria appear normal in size Aortic valve is calcified. There is moderate aortic stenosis. Peak gradient is 44, mean 30 mmHg. Calculated aortic valve area is 1.3 cm??. There is trace aortic regurgitation Wall motion Left Ventricle Technically limited due to body habitus. The overall left ventricular systolic function appears normal. Regional wall motion is not well visualized but grossly normal. There is no ventricular septal defect visualized. LVEF is 55%. Right Ventricle Right ventricle is not well visualized. Right ventricular systolic function could not be assessed. Atria The left atrium size is normal. The right atrium size is normal. The interatrial septum is intact with no evidence for an atrial septal defect. Aortic Valve Aortic valve is calcified. Moderate aortic stenosis. Peak aortic valve gradient is 43.95mmHg. Highest mean aortic valve gradient is 29.62_mmHg. Calculated JAMES by the continuity equation is 1.3_cm2. Trace aortic regurgitation. Mitral Valve The mitral valve is normal in structure. No evidence of mitral valve stenosis. Trace mitral regurgitation. Tricuspid Valve The tricuspid valve is normal in structure. There is no tricuspid valve stenosis. Trace tricuspid regurgitation. Pulmonic Valve Pulmonic valve is not well visualized. Great Vessels The aortic root is normal in size. Aortic arch is normal in caliber. IVC is normal in size and collapses >50% with inspiration. Pericardium There is no pericardial effusion. 2D Dimensions Ao Root d 2.98 cm F: 2.7 - 3.3 M-Mode TAPSE 2.17 cm (M/F) >1.7 Auto EF LV EDV A4C 100.1 mL LV EDV A2C 75.1 mL LV EDV BP 87.5 mL LV ESV A4C 45.0 mL LV ESV A2C 34.8 mL LV ESV BP 40.4 mL LVEF(%) A4C 55.0 % LVEF(%) A2C 53.6 % LVEF(%) BP 53.9 % LV SV A4C 55.1 ml LV SV A2C 40.2 ml LV SV BP 47.1 ml LV CO A4C 5.1 L/min LV CO A2C 3.8 L/min LV CO BP 4.5 L/min HR A4C 93.27 BPM HR A2C 93.71 BPM LV EDV Index (BP) LA Volume LA Length A4C 4.3 cm LA Length A2C 4.7 cm LA Area A4C s 12.42 cm2 LA Area A2C s 14.32 cm2 LA Vol A4C A-L 30.48 mL LA Vol A2C A-L 37.18 mL LA Vol Biplane A-L 35.2 mL LA Vol/BSA A4C A-L LA Vol/BSA A2C A-L LA Vol/BSA BP A-L 16.3 mL/m2 LA Vol A4C MOD 28.7 mL LA Vol A2C MOD 34.7 mL LA Vol BP MOD 32.9 mL LV Diastology MV E' medial 0.067 (>0.07 m/s) MV E Vmax 0.83 (0.4-1.3 m/s) MV E/E' MED 12.40 (<14) MV A Vmax 1.00 (0.4-1.3 m/s) MV E' lateral 0.082 (>0.1 m/s) E/A Ratio 0.8 MV E/E' LAT 10.11 (<14) MV E' Average 0.075 m/s MV E/E'(average) 11.14 Aortic Valve AoV Vmax 3.31 m/s LVOT Vmax 1.27 m/s AoV Peak Grad 44.0 mmHg LVOT Peak Grad 6.5 mmHg AoV Area (Vmax) 1.12 cm2 LVOT VTI 0.263 m AoV VTI 0.573 m LVOT Mean Grad 4.2 mmHg AoV Mean Waqas. 2.62 m/s LVOT SV 76.52 mL AoV Mean Grad 29.6 mmHg LVOT Diam s 1.90 cm AoV Area (VTI) 1.34 cm2 AV Regurg Peak Gr. 43.95 mmHg Velocity Ratio 0.38 Mitral Valve MV DT 407 (160-240 msec) MV Vmax TIPS 0.86 m/s MV Mean Grad 1.3 (<2mmHg) MV VTI 0.222 m Tricuspid Valve RA Pressure 3.00 mmHg TV S' 0.18 m/s
== END ==
LOC: DI 02:00
PROVIDERS: PCP Nurse Practitioner Family; Visit Provider Nurse Practitioner Family
DX: I35.0 Nonrheumatic aortic (valve) stenosis (principal); Z12.31 Encounter for screening mammogram for malignant neoplasm of breast; R92.323 Mammographic fibroglandular density, bilateral breasts
CPT/HCPCS: 77063; 77067; 93306

== ENCOUNTER 2025-03-12 04:20 | Outpatient (CLI) | payer MEDICARE, SELFPAY ==
[2025-03-12 14:25] LABS: Albumin 3.7 g/dL (3.2-5.0); Anion Gap 7 mmol/L (3-11); BUN 10 mg/dL (9-23); CO2 31.3 mmol/L (20.0-31.0); Calcium 8.3 mg/dL (8.3-10.6); Chloride 99 mmol/L (98-107); Glucose 197 mg/dL (74-106); Potassium 3.5 mmol/L (3.5-5.1); Sodium 137 mmol/L (136-145)
[2025-03-12 14:28] LABS: TSH 0.16 uIU/mL (0.55-4.78)
== END 2025-03-12 04:21 | disposition home or self-care (01) ==
LOC: LOS 04:20
PROVIDERS: PCP Nurse Practitioner Family; Visit Provider Student in an Organized Health Care Education/Training Program
DX: E05.20 Thyrotoxicosis with toxic multinodular goiter without thyrotoxic crisis or storm (principal); Z98.890 Other specified postprocedural states; Z90.89 Acquired absence of other organs; E89.2 Postprocedural hypoparathyroidism
CPT/HCPCS: 36415; 80069; 83970; 84439; 84443

== ENCOUNTER 2025-04-10 00:22 | Outpatient (CLI) | payer MEDICARE, SELFPAY ==
[2025-04-10 11:42] LABS: TSH 0.23 uIU/mL (0.55-4.78)
[2025-04-10 14:17] LABS: Albumin 3.9 g/dL (3.2-5.0); Anion Gap 9.8 mmol/L (3-11); BUN 13 mg/dL (9-23); CO2 28.2 mmol/L (20.0-31.0); Calcium 8.7 mg/dL (8.3-10.6); Chloride 102 mmol/L (98-107); Glucose 104 mg/dL (74-106); Potassium 3.6 mmol/L (3.5-5.1); Sodium 140 mmol/L (136-145)
== END 2025-04-10 00:23 | disposition home or self-care (01) ==
LOC: LBO 00:22
PROVIDERS: PCP Nurse Practitioner Family; Visit Provider Student in an Organized Health Care Education/Training Program
DX: E05.20 Thyrotoxicosis with toxic multinodular goiter without thyrotoxic crisis or storm (principal); Z98.890 Other specified postprocedural states; Z90.89 Acquired absence of other organs; E89.2 Postprocedural hypoparathyroidism
CPT/HCPCS: 36415; 80069; 83970; 84439; 84443